=== PATIENT | male | born 1970 | race Caucasian/White ===

== ENCOUNTER 2016-11-14 09:17 | Emergency (ER) | payer OTHER ==
[2016-11-14 09:21] VITALS: TEMP 97.6
[2016-11-14] MEDS ORDERED: ONDANSETRON 4 MG/2 ML VIAL IVP STA (09:27)
[2016-11-14] MEDS ORDERED: KETOROLAC 30 MG/ML 1 ML VIAL IVP STA ×2 (09:27→11:42)
[2016-11-14] MEDS ORDERED: SODIUM CHLORIDE 0.9% 1,000 ML IV STA (09:27)
--- NOTE | 2016-11-14 09:29 | ED ---
General Adult HPI - General Chief complaint: Abdominal Pain Stated complaint: kidney pain, left side Time Seen by Provider: 11/14/16 09:23 Source: patient, RN notes reviewed Mode of arrival: ambulatory Limitations: no limitations - History of Present Illness Initial comments: Patient 46-year-old male who presents emergency room today with a chief complaint of left-sided flank pain. Patient does admit pain located to the left side of his back. States feels like a kidney stone was had several years ago. He does admit the pain started approximately one week. He describes a sharp. Does admit to nausea. Denies any other complaint or symptoms. Patient denies any recent fever, chills, shortness of breath, chest pain, vomiting, numbness or tingling, dysuria or hematuria, constipation or diarrhea, headaches or visual changes, or any other complaints. - Related Data Home Medications Medication Instructions Recorded Confirmed Acetaminophen Tab [Tylenol Tab] 975 mg PO ONCE PRN 11/14/16 11/14/16 Previous Rx's Medication Instructions Recorded Ondansetron Odt [Zofran ODT] 4 mg PO Q8HR PRN #20 tab 11/14/16 Allergies Allergy/AdvReac Type Severity Reaction Status Date / Time No Known Allergies Allergy Verified 11/14/16 09:55 Review of Systems ROS Statement: Those systems with pertinent positive or pertinent negative responses have been documented in the HPI. ROS Other: All systems not noted in ROS Statement are negative. Past Medical History Past Medical History: No Reported History Additional Past Medical History / Comment(s): kidney stone History of Any Multi-Drug Resistant Organisms: None Reported Past Surgical History: No Surgical Hx Reported Past Psychological History: No Psychological Hx Reported Smoking Status: Current every day smoker Past Alcohol Use History: Occasional Past Drug Use History: None Reported General Exam - General Exam Comments Initial Comments: General: The patient is awake and alert, in no distress, and does not appear acutely ill. Eye: Pupils are equal, round and reactive to light, extra-ocular movements are intact. No nystagmus. There is normal conjunctiva bilaterally. No signs of icterus. Ears, nose, mouth and throat: There are moist mucous membranes and no oral lesions. Neck: The neck is supple, there is no tenderness or JVD. Cardiovascular: There is a regular rate and rhythm. No murmur, rub or gallop is appreciated. Respiratory: Lungs are clear to auscultation, respirations are non-labored, breath sounds are equal. No wheezes, stridor, rales, or rhonchi. Gastrointestinal: Soft, non-distended, non-tender abdomen without masses or organomegaly noted. There is no rebound or guarding present. Mild tenderness left CVA. Bowel sounds are unremarkable. Musculoskeletal: Normal ROM, no tenderness. Strength 5/5. Sensation intact. Pulses equal bilaterally 2+. Neurological: A&O x 3. CN II-XII intact, There are no obvious motor or sensory deficits. Coordination appears grossly intact. Speech is normal. Skin: Skin is warm and dry and no rashes or lesions are noted. Psychiatric: Cooperative, appropriate mood & affect, normal judgment. Limitations: no limitations Course Vital Signs 11/14/16 11/14/16 09:19 10:57 Temperature 97.6 F Pulse Rate 82 75 Respiratory 20 16 Rate Blood Pressure 148/78 134/64 O2 Sat by Pulse 100 98 Oximetry Medical Decision Making - Medical Decision Making Patient's CT of the abdomen and pelvis reviewed shows 1. Prominent fluid- filled small bowel loops in the mid and lower abdomen and liquid stool in the ascending colon. Results small bowel loops are mildly dilated up to 3.6 cm, no discrete cringes point seen. Correlate for general ileus or enteritis. 2. No nephrolithiasis or hydronephrosis. 3. Prostatomegaly. Results were discussed with patient. He is advised to follow-up the family doctor over the next 2 days. Patient at this time has had bowel movements. He is passing gas. Patient advised that if any symptoms increase to return here to the emergency room. Is advised to use nausea medication. Advised follow-up the family doctor about his enlarged prostate. She states understanding. - Lab Data Result diagrams: 11/14/16 09:50 11/14/16 10:32 Lab Results 11/14/16 11/14/16 11/14/16 Range/Units 09:50 09:50 10:32 WBC 8.4 (3.8-10.6) k/uL RBC 4.79 (4.30-5.90) m/uL Hgb 16.2 (13.0-17.5) gm/dL Hct 48.1 (39.0-53.0) % MCV 100.4 H (80.0-100.0) fL MCH 33.7 (25.0-35.0) pg MCHC 33.6 (31.0-37.0) g/dL RDW 13.4 (11.5-15.5) % Plt Count 305 (150-450) k/uL Neutrophils % 78 % Lymphocytes % 13 % Monocytes % 6 % Eosinophils % 1 % Basophils % 1 % Neutrophils # 6.6 (1.3-7.7) k/uL Lymphocytes # 1.1 (1.0-4.8) k/uL Monocytes # 0.5 (0-1.0) k/uL Eosinophils # 0.1 (0-0.7) k/uL Basophils # 0.1 (0-0.2) k/uL Sodium 136 L (137-145) mmol/L Potassium 4.6 (3.5-5.1) mmol/L Chloride 104 (98-107) mmol/L Carbon Dioxide 24 (22-30) mmol/L Anion Gap 8 mmol/L BUN 12 (9-20) mg/dL Creatinine 0.66 (0.66-1.25) mg/dL Est GFR (MDRD) Af Amer >60 (>60 ml/min/1.73 sqM) Est GFR (MDRD) Non-Af >60 (>60 ml/min/1.73 sqM) Glucose 92 (74-99) mg/dL Calcium 9.2 (8.4-10.2) mg/dL Total Bilirubin 0.7 (0.2-1.3) mg/dL AST 27 (17-59) U/L ALT 22 (21-72) U/L Alkaline Phosphatase 56 (38-126) U/L Total Protein 7.2 (6.3-8.2) g/dL Albumin 4.4 (3.5-5.0) g/dL Amylase 75 (30-110) U/L Lipase 80 (23-300) U/L Urine Color Yellow Urine Appearance Clear (Clear) Urine pH 6.0 (5.0-8.0) Ur Specific [place] 1.023 (1.001-1.035) Urine Protein Negative (Negative) Urine Glucose (UA) Negative (Negative) Urine Ketones Negative (Negative) Urine Blood Negative (Negative) Urine Nitrite Negative (Negative) Urine Bilirubin Negative (Negative) Urine Urobilinogen <2.0 (<2.0) mg/dL Ur Leukocyte Esterase Negative (Negative) Disposition Clinical Impression: Enteritis, Enlarged prostate Disposition: HOME SELF-CARE Condition: Good Instructions: Colitis (ED) Additional Instructions: Please follow-up the family doctor but enlarged prostate. Please return to emergency room if any symptoms increase or worsen or for any other concerns as discussed. Prescriptions: Ondansetron Odt [Zofran ODT] 4 mg PO Q8HR PRN #20 tab PRN Reason: Nausea Time of Disposition: 11:55
[2016-11-14 10:02] LABS: Basophils # (A) 0.1 k/uL (0-0.2); Basophils % (A) 1 %; CH 33.7; CHCM 33.7; Eosinophils # (A) 0.1 k/uL (0-0.7); Eosinophils % (A) 1 %; HCT 48.1 % (39.0-53.0); HDW 2.07; HGB 16.2 gm/dL (13.0-17.5); Luc # (Auto) 0.13; Luc % (Auto) 2; Lymphocytes # (A) 1.1 k/uL (1.0-4.8); Lymphocytes % (A) 13 %; MCH 33.7 pg (25.0-35.0); MCHC 33.6 g/dL (31.0-37.0); MCV 100.4 fL (80.0-100.0); Monocytes # (A) 0.5 k/uL (0-1.0); Monocytes % (A) 6 %; Neutrophils # (A) 6.6 k/uL (1.3-7.7); Neutrophils % (A) 78 %; RBC 4.79 m/uL (4.30-5.90); RDW 13.4 % (11.5-15.5); WBC 8.4 k/uL (3.8-10.6); WBC (Perox) 8.62
[2016-11-14 10:04] LABS: Appearance,Urine Clear (Clear); Bilirubin,Urine Negative (Negative); Glucose,Urine (UA) Negative (Negative); Ketones,Urine Negative (Negative); Leukocyte Esterase,Urine Negative (Negative); Nitrite,Urine Negative (Negative); Protein,Urine Negative (Negative); Specific Gravity,Urine 1.023 (1.001-1.035); UA Billing (MACRO vs. MICRO) CHEM; Urobilinogen,Urine <2.0 mg/dL (<2.0)
--- NOTE | 2016-11-14 10:30 | XR ---
EXAMINATION TYPE: XR KUB DATE OF EXAM: 11/14/2016 10:00 AM CLINICAL DATA: 46-year-old male with abdominal pain, [facility] COMPARISON: None FINDINGS: Lung bases are clear. Cholecystectomy clips. No evidence for free intraperitoneal air. No dilated small bowel or differential air-fluid levels. Scattered air and stool seen throughout the colon extending distally into the rectum. Small air-fluid levels in the right hemicolon. Calcification far lateral left upper quadrant probable calcified granuloma in the spleen. Nonspecific 8 mm calcification projecting over the right iliac wing could represent calcified granulo ma in the liver. IMPRESSION: 1. Small air-fluid levels within the ascending colon. Findings could represent enteritis or a mild re gional ileus. No evidence for bowel obstruction or free air. 2. Nonspecific 8 mm calcification projecting at the right iliac wing. Possible calcified granuloma. C linical correlation recommended to exclude a urinary tract calculus.
[2016-11-14] MEDS ORDERED: RX INFO: IV CONTRAST WAS GIVEN 1 EACH MISC MISCELLANE PRN (10:49)
[2016-11-14] MEDS ORDERED: HYDROmorphone 1 MG/ML 1 ML SYRINGE IVP STA ×2 (10:50→11:53)
[2016-11-14 10:57] LABS: ALT 22 U/L (21-72); AST 27 U/L (17-59); Alkaline Phosphatase 56 U/L (38-126); Amylase 75 U/L (30-110); Anion Gap 8 mmol/L; Blood Urea Nitrogen 12 mg/dL (9-20); Calcium 9.2 mg/dL (8.4-10.2); Carbon Dioxide 24 mmol/L (22-30); Chloride 104 mmol/L (98-107); Glucose 92 mg/dL (74-99); Non-African American GFR(MDRD) >60 (>60 ml/min/1.73 sqM); Potassium 4.6 mmol/L (3.5-5.1); Sodium 136 mmol/L (137-145); Total Bilirubin 0.7 mg/dL (0.2-1.3); Total Protein 7.2 g/dL (6.3-8.2)
[2016-11-14 10:58] VITALS: BP 134/64; PULSE 75; RESP 16
--- NOTE | 2016-11-14 11:32 | CT ---
EXAMINATION TYPE: CT abdomen pelvis w con DATE OF EXAM: 11/14/2016 11:18 AM COMPARISON: Radiograph same day HISTORY: 46-year-old male with left kidney pain TECHNIQUE: Contiguous axial scanning of the abdomen and pelvis following administration of 100 ml Omn ipaque 300 IV contrast. Delayed images through the kidneys and coronal/sagittal reconstructions perf ormed. CT DLP: 1001 mGycm Automated exposure control for dose reduction was used. FINDINGS: The heart is normal size without pericardial effusion. Postsurgical changes at the GE junction likely Anna Marie fundoplication. Mild dependent atelectasis posterior right lung base. No pleural effusion. There is mild prominence to the biliary system with the bile duct measuring 1 cm. Cholecystectomy cli ps are present. Normal distal tapering is noted. Portal venous system is patent. Adrenal glands, right kidney, spleen with calcifications inferiorly likely calcified granulomas, and pancreas appear within normal limits. A couple subcentimeter hypodensities lateral midpole left kidne y are too small for accurate CT characterization probably represent cysts. No nephrolithiasis or hydr onephrosis. Symmetric uptake and excretion of contrast from both kidneys Posterior intra-abdominal fat limits assessment for abdominal lymph nodes. No obvious lymphadenopathy seen. Numerous prominent fluid-filled small bowel loops throughout the mid and lower abdomen without a disc rete transition point seen. Some of the bowel loops are mildly dilated measuring up to 3.6 cm. Liquid stool within the ascending colon. Normal appendix is seen. Bladder is urine distended. Prostate gland is enlarged measuring 5 cm wide. No abnormal fluid collect ion in the pelvis or pelvic lymphadenopathy seen. Bones: Sclerotic focus in the right iliac bone, likely bone island. This appears to correspond to the 8 mm calcific density seen on radiographs. No osseous destructive process. Limbus L4 vertebra. IMPRESSION: 1. PROMINENT FLUID-FILLED SMALL BOWEL LOOPS IN THE MID AND LOWER ABDOMEN AND LIQUID STOOL IN THE ASCE NDING COLON. WHILE SOME OF THE SMALL BOWEL LOOPS ARE MILDLY DILATED UP TO 3.6 CM, NO DISCRETE TRANSIT ION POINT IS SEEN. CORRELATE FOR GENERALIZED ILEUS OR ENTERITIS. A SHORT INTERVAL FOLLOW-UP CAN BE PE RFORMED IF CLINICAL SYMPTOMS RAISES CONCERN FOR PARTIAL SMALL BOWEL OBSTRUCTION. 2. NO NEPHROLITHIASIS OR HYDRONEPHROSIS. 3. PROSTATOMEGALY (5.0 CM WIDE). PROMINENT UTERINE DISTENTION OF THE BLADDER.
== END 2016-11-14 12:37 | disposition home or self-care (01) ==
LOC: EC 09:17
DX: K52.9 Noninfective gastroenteritis and colitis, unspecified (principal); N40.0 Benign prostatic hyperplasia without lower urinary tract symptoms; F17.200 Nicotine dependence, unspecified, uncomplicated; Z87.442 Personal history of urinary calculi
CPT/HCPCS: 99285; 96374; 96375 ×2; 96376; 96361; 36415; 80053; 82150; 83690; 85025; 81003; 74000; 74177; G0103; J2405; J1885; J1170; Q9967

== ENCOUNTER → 2020-02-20 | Outpatient (CLI) | payer OTHER ==
--- NOTE | 2020-02-21 03:11 | MR ---
EXAMINATION TYPE: MR brain wo/w con DATE OF EXAM: 02/20/2020 COMPARISON: 03/22/2010 CT scan HISTORY: Non Traumatic ICB, hand tremmors, forgetful CONTRAST: Standard multiplanar, multisequence MRI departmental protocol utilizing 6.5 mL intravenous Gadavist g adolinium contrast. FINDINGS: Ventricles of normal size. There is no mass effect nor midline shift. There is no sign of intracrania l hemorrhage. There is mild cerebral atrophy. There is mixed signal involving a 3 x 2 cm area of the medial right frontal lobe consistent with old encephalomalacia also evident on the old CT scan of 02/23. Lesion is predominantly fluid signal. The brainstem is intact. Carpus callosum appears intact . I see no evidence of an acute cortical infarct. Sella turcica appears normal. Cerebellum appears no rmal. The contrast images show no pathologic enhancement. There is normal enhancement of the venous s inuses. There is mixed signal involving the right frontal sinus consistent with previous surgery. 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 No acute intracranial abnormality.
== END | disposition home or self-care (01) ==
LOC: RADMRIMAIN 14:32
PROVIDERS: ATTEND Internal Medicine Geriatric Medicine
DX: G93.89 Other specified disorders of brain (principal)
CPT/HCPCS: 70553; A9585

== ENCOUNTER → 2020-11-13 | Outpatient (CLI) | payer OTHER ==
--- NOTE | 2020-11-13 15:34 | MR ---
EXAMINATION TYPE: MR shoulder RT wo con DATE OF EXAM: 11/13/2020 2:06 PM COMPARISON: NONE HISTORY: Rt shoulder pain TECHNIQUE: Multiplanar multispin echo imaging of the right shoulder was performed. FINDINGS: Rotator cuff : There is heterogeneity of the supraspinatus tendon compatible chronic tendinopathy. Th ere is full thickness partial tear involving the supraspinatus tendon just distal to the critical zon e. Small fluid filled gap measures approximately 7 mm. The remaining constituents of the rotator cuff are intact. Bursa: No bursal effusion or thickening is seen. Musculature: There is no muscular tear, contusion, or atrophy. Acromioclavicular joint : AC joint arthropathy noted mild in degree. Lateral downsloping of the acrom ion with subacromial spurring resulting in impingement. Osseous structures : There are no fractures o r regions of abnormal bone marrow signal intensity. Long biceps tendon : The biceps tendon is normally situated within the bicipital groove. No complete or partial biceps tendon tear is present. Glenohumeral Joint fluid : There is no glenohumeral joint effusion. Cartilage and Bone : No focal hyaline cartilage defects are noted. No Hill-Sachs, reverse Hill-Sachs, or bony Bankart lesions are seen. Labrum : There are no SLAP or soft tissue Bankart lesions. No paralabral cysts are seen. OTHER FINDINGS : none IMPRESSION: 1. There is heterogeneity of the supraspinatus tendon compatible chronic tendinopathy. There is full thickness partial tear involving the supraspinatus tendon just distal to the critical zone. Small flu id filled gap measures approximately 7 mm.
== END | disposition home or self-care (01) ==
LOC: RADMRIMAIN 13:01
PROVIDERS: ATTEND Orthopaedic Surgery
DX: M75.111 Incomplete rotator cuff tear or rupture of right shoulder, not specified as traumatic (principal)

== ENCOUNTER → 2020-12-28 | Outpatient (CLI) | payer OTHER ==
[2020-12-28 13:20] LABS: Potassium 4.3 mmol/L (3.5-5.1)
[2020-12-28 13:21] LABS: Basophils % (A) 0 %; Eosinophils # (A) 0.1 k/uL (0-0.7); Eosinophils % (A) 1 %; HCT 45.9 % (39.0-53.0); HGB 15.3 gm/dL (13.0-17.5); Lymphocytes % (A) 14 %; MCH 32.9 pg (25.0-35.0); MCHC 33.2 g/dL (31.0-37.0); MCV 98.8 fL (80.0-100.0); Mean Platelet Volume 6.8; Monocytes # (A) 0.3 k/uL (0-1.0); Monocytes % (A) 5 %; Neutrophils # (A) 5.6 k/uL (1.3-7.7); Neutrophils % (A) 79 %; Platelet Count 341 k/uL (150-450); RBC 4.64 m/uL (4.30-5.90); RDW 13.3 % (11.5-15.5); WBC 7.1 k/uL (3.8-10.6)
== END | disposition home or self-care (01) ==
LOC: LABPAT 11:56
PROVIDERS: ATTEND Orthopaedic Surgery
DX: Z01.812 Encounter for preprocedural laboratory examination (principal); M75.41 Impingement syndrome of right shoulder; I45.19 Other right bundle-branch block
CPT/HCPCS: 36415; 80051; 85025; 93005

== ENCOUNTER 2021-01-07 07:32 | Day surgery (SDC) | payer OTHER ==
[2021-01-05 13:04] VITALS: BMI 19.3
--- NOTE | 2021-01-06 15:12 | HP ---
HISTORY AND PHYSICAL REASON FOR ADMISSION: Surgery is scheduled for 01/07/2021 HISTORY OF PRESENT ILLNESS: Evens Mejia is a 50-year-old gentleman seen with progressive right shoulder pain. We discussed options for treatment. He elected to proceed with arthroscopy. Consent regarding the procedure was obtained. PAST MEDICAL HISTORY: Noncontributory. SURGICAL HISTORY: Noncontributory. DAILY MEDICATIONS: None. ALLERGIES: None reported. SOCIAL HISTORY: Smokes half pack cigarettes daily. PHYSICAL EVALUATION OF THE RIGHT SHOULDER: Flexion 140, abduction 120, external rotations 30 with weakness and pain. Tenderness along the anterior lateral acromion rotator cuff insertion site. Impingement sign is positive at 90. Drop-arm sign is positive. Distal neurovascular exam is intact. RADIOGRAPHS: Right shoulder radiographs revealed a type 3 acromion evidence for acromioclavicular joint osteoarthritis and cystic changes of the tuberosity. Right shoulder MRI revealed impingement, acromioclavicular joint osteoarthritis and rotator cuff tendon tear. IMPRESSION: 1. Right shoulder impingement with rotator cuff tear. 2. Right shoulder acromioclavicular joint osteoarthritis. 3. Tobacco use. PLAN: Right shoulder arthroscopy, subacromial decompression, arthroscopic rotator cuff repair, Fabiana procedure and debridement. MMODL / IJN: [id number] /
[2021-01-07] MEDS ORDERED: LACTATED RINGERS 1,000 ML IV ONE ×2 (08:10→10:14)
[2021-01-07] MEDS ORDERED: LIDOCAINE 1% (10MG/ML) FOR IV START INTRADERMA ONE (08:11)
[2021-01-07] MEDS ORDERED: ONDANSETRON 4 MG/2 ML VIAL ONE (08:17)
[2021-01-07] MEDS ORDERED: DEXAMETHASONE SOD PHOSPHATE 4 MG/ML 1 ML VIAL IVP ONE (08:23)
[2021-01-07] MEDS ORDERED: ONDANSETRON 4 MG/2 ML VIAL IVP ONE ×3 (08:25→11:03)
[2021-01-07] MEDS ORDERED: LIDOCAINE 1% (10MG/ML) FOR IV START INTRADERMA PRN (08:26)
[2021-01-07] MEDS ORDERED: HYDROmorphone 0.5 MG/0.5 ML SYRINGE IVP PRN (08:26)
[2021-01-07] MEDS ORDERED: MIDAZOLAM 2 MG/2 ML VIAL IV PRN (08:26)
[2021-01-07] MEDS ORDERED: LACTATED RINGERS 1,000 ML IV SCH (08:26)
[2021-01-07] MEDS ORDERED: DEXAMETHASONE SOD PHOSPHATE 4 MG/ML 1 ML VIAL IV ONE (08:26)
[2021-01-07] MEDS ORDERED: MIDAZOLAM 2 MG/2 ML VIAL IVP ONE (08:41)
[2021-01-07] MEDS ORDERED: ePHEDrine SULFATE/0.9% NACL/PF 50 MG/5 ML SYRINGE IV ONE (09:17)
[2021-01-07] MEDS ORDERED: MIDAZOLAM 2 MG/2 ML VIAL ONE (09:17)
[2021-01-07] MEDS ORDERED: DEXAMETHASONE SOD PHOSPHATE 4 MG/ML 1 ML VIAL ONE (09:17)
[2021-01-07] MEDS ORDERED: fentaNYL (PF) 50 MCG/ML 2 ML AMP ONE (09:17)
[2021-01-07] MEDS ORDERED: SUCCINYLCHOLINE CHLORIDE 100 MG/5 ML SYR IV ONE (09:17)
[2021-01-07] MEDS ORDERED: ROPIVACAINE 5 MG/ML 30 ML VIAL ONE (09:17)
[2021-01-07] MEDS ORDERED: LIDOCAINE 1% INJ 10MG/ML (20 ML MDV) ONE (09:17)
[2021-01-07] MEDS ORDERED: PROPOFOL 10 MG/ML 20 ML VIAL IV ONE (09:17)
--- NOTE | 2021-01-07 11:01 | P.OP ---
Date of Procedure: 01/07/21 Preoperative Diagnosis: Right shoulder impingement Postoperative Diagnosis: 1. Right shoulder rotator cuff tear 2. Right shoulder impingement 3. Right shoulder acromioclavicular joint osteoarthritis 4. Right shoulder partial long head biceps tendon tear 5. Right shoulder superficial labral tear Procedure(s) Performed: 1. Right shoulder arthroscopic rotator cuff repair 2. Right shoulder arthroscopic subacromial decompression 3. Right shoulder arthroscopic Fabiana procedure 4. Right shoulder arthroscopic biceps tenotomy 5. Right shoulder arthroscopic debridement labral tear Implants: 4Arthrex 4.75 swivel lock anchors Anesthesia: GETA, regional (Interscalene block) Surgeon: Collin Barnes Cracking Still Operator #1: Yoni Subramanian Estimated Blood Loss (ml): 7 Pathology: none sent Condition: stable Disposition: PACU Indications for Procedure: 50-year-old patient seen with progressive right shoulder pain. After treatment options were discussed, he elected to proceed with arthroscopy. Operative Findings: See description of procedure Description of Procedure: Patient underwent an interscalene block by department of anesthesia. The patient was then taken to the operative suite. The patient underwent a general anesthetic by the department of anesthesia. The patient was placed into a lateral position and secured. There was appropriate padding of the bony prominence. Right shoulder was then prepped and draped in normal sterile orthopedic fashion. We placed the extremity in 10 pounds of longitudinal traction. A posterior incision was now made for a posterior working portal site. The trocar and cannula were inserted into the glenohumeral joint. Arthroscopy was initiated. Spinal needle was now inserted anteriorly, to ascertain the anterior working portal site. An incision was now made in that area, a trocar was inserted followed by a probe. There was some superficial tearing of the anterior labrum. There was no significant chondromalacia present. There was some partial tearing and hyperemia long head biceps tendon. I performed a arthroscopic biceps tenotomy. I debrided that superficial labral tear getting down to stable labral tissue. The residual labrum was now probed and found to be stable. Instruments now removed from glenohumeral joint. Utilizing the posterior working portal site, the trocar and cannula were inserted into the subacromial space. Arthroscopy initiated. I made an incision 2 fingerbreadths lateral to the acromion. I introduced my trocar followed by my ArthroCare ablator. I now began ablating thick subacromial bursal tissue, which exposed the undersurface of the anterior acromion. There was diminished subacromial space. There was a very prominent anterior acromion. A motorized bur was introduced and a subacromial decompression was performed. I also excised some osteophytes off the inferior aspect of the distal clavicle. The AC joint was visualized and noted to be fairly arthritic. The motorized bur was introduced in the anterior portal site and a Fabiana procedure was performed without difficulty, decompressing the AC joint nicely. I turned my attention to the rotator cuff. There was a 2.5 cm rotator cuff tear. I debrided the margins getting down to stable tendon tissue. I introduced my motorized bur and abraded the footprint area, getting some petechial bleeding. I now made an accessory p ortal site off the lateral aspect of the acromion. I punched 2 holes medial for medial row fixation with the assistance of Shiva CUNHA carefully tapping the punch with a mallet as I held the punch and the camera. I now introduced both anchors into the pre-punched holes and Shiva CUNHA tapped them with the mallet as I held anchors and the camera. Shiva CUNHA now screwed the anchors in place a while I held the anchor guide and camera. All 8 limbs of suture were now passed through good bites of rotator cuff tendon. I now punched 2 holes for lateral row fixation again I held the punch and camera while Shiva CUNHA used a mallet to tap in the punch. We now passed sutures through both anchors and individually I introduced the anchors into the pre-punch holes I held the anchor guide in position with one hand holding the camera with the other hand while Shiva CUNHA tensioned the sutures and screwed in the anchors one at a time. All residual suture limbs were now clipped. We had good compression of the tendon along the entire footprint. Instruments now removed from the portal sites. All portal sites were approximated with nylon suture. Sterile dressings were applied followed by a shoulder immobilizer. Yoni CUNHA assisted in this complex case. The patient was awakened, transferred to a bed, and taken to recovery in stable condition.
[2021-01-07 11:02] VITALS: TEMP 97.2
[2021-01-07 11:45] VITALS: BP 144/83; PULSE 81; RESP 20
--- NOTE | 2021-01-07 19:52 | P.ANPRN ---
Procedure Note - Anesthesia - Nerve Block Performed Right Interscalene Single Time Out Performed: Yes Date of Procedure: 01/07/21 Procedure Start Time: 08:40 Procedure Stop Time: 08:45 Location of Patient: PreOp Indication: Acute Post-Operative Pain, Requested by Surgeon Sedation Type: Sedate with meaningful contact maintained Preparation: Sterile Prep Position: Supine Needle Types: Pajunk Needle Gauge: 21 Ultrasound used to visualize needle placement: Yes Ultrasound used to observe medication spread: Yes Blood Aspirated: No Pain Paresthesia on Injection Noted: No Resistance on Injection: Normal Image Stored and Saved: Yes Events: Uneventful and Well Tolerated (ropi .5% 20cc plus dexamethasone 4mg)
== END 2021-01-07 12:39 | disposition home or self-care (01) ==
LOC: OR 07:32
PROVIDERS: ATTEND Orthopaedic Surgery
DX: M75.101 Unspecified rotator cuff tear or rupture of right shoulder, not specified as traumatic (principal); M25.811 Other specified joint disorders, right shoulder; M19.011 Primary osteoarthritis, right shoulder; S46.111A Strain of muscle, fascia and tendon of long head of biceps, right arm, initial encounter; S43.431A Superior glenoid labrum lesion of right shoulder, initial encounter; X58.XXXA Exposure to other specified factors, initial encounter; M25.711 Osteophyte, right shoulder; F17.210 Nicotine dependence, cigarettes, uncomplicated; Z79.899 Other long term (current) drug therapy; Z90.49 Acquired absence of other specified parts of digestive tract; Z98.890 Other specified postprocedural states
CPT/HCPCS: 64415; 76942; 29826; 29827; 29824; C1713; C1894; J2250; J1100; J2405; J0690; J2001; J3010; J2795; J0330; J2704

== ENCOUNTER → 2023-08-18 | Outpatient (CLI) | payer OTHER ==
--- NOTE | 2023-08-20 18:48 | MR ---
EXAMINATION TYPE: MR cervical spine wo con DATE OF EXAM: 08/18/2023 COMPARISON: HISTORY: Neck pain into right arm/fingers CONTRAST: Performed utilizing mL intravenous gadolinium contrast. TECHNIQUE: Multiplanar multiecho imaging on a 3.0 Carmenza magnet is performed through the cervical spin e. FINDINGS: The craniovertebral junction is normal. Vertebral body alignment is normal. C7-T1: No focal disc herniation or significant disc bulge is evident. No spinal canal stenosis. Mil d right foraminal stenosis is present. C6-7: Disc space narrowing is present. Minimal residual disc has anterior thecal sac flattening. Mode rate right foraminal narrowing is present. No cord contact or spinal canal stenosis is present.. C5-6: No focal disc herniation or significant disc bulge is evident. No spinal canal stenosis or susie ral foraminal stenosis is present. C4-5: Minimal disc bulge is anterior thecal sac. No AP spinal canal stenosis is present. Foramina are patent.. C3-4: No focal disc herniation or significant disc bulge is evident. No spinal canal stenosis or susie ral foraminal stenosis is present. C2-3: No focal disc herniation or significant disc bulge is evident. No spinal canal stenosis or susie ral foraminal stenosis is present. IMPRESSION: 1. Minimal degenerative disc changes C4-5 and C6-7. 2. Right foraminal narrowing at C6-7
== END | disposition home or self-care (01) ==
LOC: RADMRIMAIN 18:00
PROVIDERS: ATTEND Orthopaedic Surgery
DX: M47.812 Spondylosis without myelopathy or radiculopathy, cervical region (principal); M99.71 Connective tissue and disc stenosis of intervertebral foramina of cervical region
CPT/HCPCS: 72141

== ENCOUNTER 2024-01-08 06:18 | Inpatient (IN) | payer BC, OTHER ==
[2024-01-08] MEDS: SCOPOLAMINE 1 MG/72 HR PATCH TRANSDERM ONE (06:55)
[2024-01-08] MEDS: ONDANSETRON 4 MG/2 ML VIAL IVP ONE (06:55)
[2024-01-08] MEDS: LACTATED RINGERS 1,000 ML IV SCH (06:57)
[2024-01-08 07:01] LABS: Glucose,Whole Blood 87 mg/dL (70-110)
[2024-01-08] MEDS: MIDAZOLAM 2 MG/2 ML VIAL IV PRN (07:01)
[2024-01-08] MEDS: fentaNYL (PF) 50 MCG/ML 2 ML AMP IVP PRN (07:12)
[2024-01-08] MEDS ORDERED: MIDAZOLAM 2 MG/2 ML VIAL ONE (07:23)
[2024-01-08] MEDS ORDERED: ePHEDrine 50 MG/ML 1 ML VIAL ONE (07:23)
[2024-01-08] MEDS ORDERED: ROCURONIUM 10 MG/ML (5 ML VIAL) IV ONE (07:23)
[2024-01-08] MEDS ORDERED: HYDROmorphone (PF) 1 MG/ML ONE (07:23)
[2024-01-08] MEDS ORDERED: LIDOCAINE 1% INJ 10MG/ML (20 ML MDV) ONE (07:23)
[2024-01-08] MEDS ORDERED: fentaNYL (PF) 50 MCG/ML 2 ML AMP ONE (07:23)
[2024-01-08] MEDS ORDERED: SUCCINYLCHOLINE CHLORIDE 200 MG/10 ML VIAL IV ONE (07:23)
[2024-01-08] MEDS ORDERED: NEOSTIGMINE 1 MG/ML 10 ML VIAL ONE (07:23)
[2024-01-08] MEDS ORDERED: PHENYLEPHRINE-0.9% NACL SYG 1,000 MCG/10 ML SYRINGE ONE (07:23)
[2024-01-08] MEDS ORDERED: GLYCOPYRROLATE 0.2 MG/ML 2 ML VIAL ONE (07:23)
[2024-01-08] MEDS ORDERED: KETAMINE HCL IN 0.9 % NACL 50 MG/5 ML SYRINGE ONE (07:23)
[2024-01-08] MEDS ORDERED: PROPOFOL 10 MG/ML 20 ML VIAL IV ONE (07:23)
[2024-01-08] MEDS ORDERED: DEXAMETHASONE SOD PHOSPHATE 10 MG/ML 1 ML VIAL ONE (07:23)
[2024-01-08] MEDS: IV FLUID CONTINUATION 1,000 ML IV ONE ×2 (07:29)
--- NOTE | 2024-01-08 07:30 | P.ANPRN ---
Procedure Note - Anesthesia - Invasive Line Right Arterial Line Time Out Performed: Yes Date of Procedure: 01/08/24 Time of Procedure: 07:12 Location of Patient: PreOp Preparation: Sterile Prep Arterial Line Location: Radial Ultrasound Used: Yes Purpose - Visualization and Identification of Vasculature: Yes Image Stored and Saved: Yes Narrative: Invasive line placement per sterile protocol utilized. AttemptX1
[2024-01-08] MEDS: GELATIN SPONGE,ABSORB (LARGE) 1 EACH SPONGE MISCELLANE ONE (08:02)
[2024-01-08] MEDS: BUPIVACAINE (PF) 0.5% 30 ML VIAL SQ ONE ×2 (08:02)
[2024-01-08] MEDS: LIDOCAINE 1%-EPI 1:100,000 20 ML VIAL SQ ONE ×2 (08:02)
[2024-01-08] MEDS: THROMBIN (BOVINE) 5,000 UNIT VIAL TOPICAL ONE (08:02)
[2024-01-08] MEDS: ceFAZolin 1,000 MG in SODIUM CHLORIDE 0.9% IRRIGATIO 1,000 ML IRRIGATION PRN (08:23)
--- NOTE | 2024-01-08 09:36 | XR ---
EXAMINATION TYPE: XR cervical spine 1V DATE OF EXAM: 01/08/2024 COMPARISON: None HISTORY: Intraoperative TECHNIQUE: Crosstable lateral cervical spine FINDINGS: Metallic device directed to the C6-7 disc level. There is narrowed C5-6 and C6-7 disc space s IMPRESSION: 1. Metallic device directed towards the C6-7 disc space
[2024-01-08] MEDS ORDERED: HYDROmorphone 1 MG/ML 1 ML SYRINGE IVP PRN (10:15)
[2024-01-08] MEDS ORDERED: BENZOCAINE/MENTHOL LOZENG 1 EACH LOZENGE MUCOUS MEM PRN (10:15)
[2024-01-08] MEDS ORDERED: ONDANSETRON 4 MG/2 ML VIAL IVP PRN (10:21)
[2024-01-08] MEDS ORDERED: ACETAMINOPHEN TAB 500 MG TAB PO PRN (10:24)
--- NOTE | 2024-01-08 10:28 | P.OP ---
Date of Procedure: 01/08/24 Preoperative Diagnosis: Spinal stenosis C4-5 C5-6 C6-7 Upper extreme radiculopathy Degenerative disc disease C4-5 C5-6 C6-7 neck pain, Postoperative Diagnosis: Same Anesthesia: GETA Pathology: none sent Condition: stable Disposition: PACU Description of Procedure: BRIEF OPERATIVE NOTE Preoperative Diagnosis:Spinal stenosis C4-5 C5-6 C6-7 Upper extreme radiculopathy Degenerative disc disease C4-5 C5-6 C6-7 neck pain, Postoperative Diagnosis:Spinal stenosis C4-5 C5-6 C6-7 Upper extreme radiculopathy Degenerative disc disease C4-5 C5-6 C6-7 neck pain, Procedure: Anterior cervical decompression with discectomy and fusion C4-5 C5-6 C6-7 Placement of interbody graft C4-5 C5-6 C6-7 Application of anterior cervical plate C4-5-6 7 Surgeon: Dr. Ross Felt Hanger: Fernando CUNHA who is present throughout the entire the case persistence during positioning, dissection, exposure, visualization, and all crucial elements of the case as well as closure. Anesthesia: General anesthesia per Dr. Koch Estimated blood loss: Approximate 100 cc Complications: None apparent Components implanted: [place] K2 M [place] anterior cervical plate system with screws and Vikos interbody allograft bone graft with 1 cc of DBX bone putty to supplement the bone graft Disposition: To recovery room in good stable condition. OPERATIVE INDICATIONS The patient has had long-standing issues in their neck and upper extremities. Patient has been having worsening symptoms at his neck and the bilateral upper extremities over the past few months. He was found to have severe disc degeneration with spinal stenosis which correlated well with his neck and upper extremity symptoms. The patient has been through conservative treatment. He is not having any prolonged benefit despite aggressive conservative care. We discussed various treatment options including surgery, and the patient wishes to proceed with surgery We discussed the risk, patient's alternatives and benefits of surgery including but not limited to, risk of bleeding risk of infection, risk of need for further surgery, risk of decreased, loss of motion, muscle function, malunion nonunion, hardware failure, nerve damage, paralysis, heart attack, and . OPERATIVE SUMMARY After discussing all the risks, patient alternatives and benefits at length, the patient elected to proceed with surgical intervention, signed informed consent, and presented for their procedure. The patient was seen and examined in the preoperative holding area and the surgical site was marked. The patient was given antibiotics and brought to the operating room. The patient was positioned on the operating room table in a supine position being careful to pad any bony prominences and pressure points. The patient was sedated and intubated by anesthesia in standard fashion. Once the airway and C- spine were stabilized the patient's arms were padded and tucked at her side, with her shoulders gently taped. The head was placed in a donut pad with the neck in good neutral alignment and position. We were careful to maintain the patient's cervical spine and good neutral alignment and position throughout. The patient was prepped and draped in a normal standard fashion. An appropriate timeout and keystone protocol performed. We were able to proceed with the surgery. The local wound area was infiltrated with local anesthetic. An incision was made transversely approximately 2-1/2 cm over the appropriate levels at C6. Dissection was taken down subcutaneously to the level of the platysma which was split in line with its fibers. Dissection was taken with a carotid approach, with the trachea and esophagus medial and the carotid sheath laterally. We dissected down to the anterior surface of the vertebral bodies from C4-C7. Intraoperative x-ray was taken which showed a marker at the appropriate level at C6-7. With the appropriate level positively confirmed, we were able to proceed with discectomy at the appropriate levels. All of the operative levels were exposed appropriately. The patient had all their twitches back, and there was no evidence of recurrent laryngeal issue. The wound was copiously irrigated and suctioned dry as had been done periodically throughout the case. At the appropriate level/levels, I established an annulotomy with an 11 blade scalpel. Starting at C6-7 and then moving to C5-6 and then at C4-5, A discectomy was performed with a combination of pituitary rongeurs, curettes, a high-speed bur, and Kerrison rongeurs. The posterior longitudinal ligament was taken down as were any posterior osteophytes. This gave good central and bilateral foraminal decompression. There were large posterior osteophytes at each of the levels which were taken down and significant stenosis with hypertrophy at the posterior longitudinal ligament which was taken down to get further decompression. There is no evidence of any dural tear or leak. The endplates were prepared with a high-speed bur. With the endplates in good parallel position, I was able to size for the appropriate size interbody graft. The wound was irrigated and suctioned dry the graft was prepared and malleted into position. It had good alignment and position with the anterior surface flush with the anterior surface of the vertebral bodies. This was done similarly the appropriate levels. With the grafts intact, I was able to measure and contour and appropriate sized plate. The plate was positioned at the midline over the appropriate levels at C4-5-6 and 7. Screw holes were established with a hand drill and drill guide. Screws were placed in good alignment and position with excellent bony purchase. They were seated under the locking device. The construct was checked and found to be stable. Intraoperative x-ray was taken which showed good alignment and position of the implants at the appropriate levels. There was no evidence of any dural tear or leak. Good hemostasis was maintained. The wound was copiously irrigated and suctioned dry as had been done periodically throughout the case. The platysma was closed with absorbable suture. The subcutaneous tissue was closed. The subcuticular tissue was closed with absorbable suture. The wound was cleaned and dried and dressed appropriately. A soft cervical collar was placed appropriately. The patient was woken up by anesthesia, extubated, transferred back gently to their hospital bed and brought to the recovery room in good stable condition. The patient will be admitted to the hospital for appropriate postoperative care, medical management and monitoring. We will continue to follow them closely about the postoperative course.
[2024-01-08] MEDS: droPERidol 5 MG/2 ML VIAL IVP ONE (11:11)
[2024-01-08] MEDS: HYDROmorphone 0.5 MG/0.5 ML SYRINGE IVP PRN ×2 (11:35→15:11)
--- NOTE | 2024-01-08 12:43 | XR ---
EXAMINATION TYPE: XR cervical spine 1V DATE OF EXAM: 01/08/2024 COMPARISON: 01/08/2024 earlier exam HISTORY: Cervical fusion TECHNIQUE: Lateral cervical spine FINDINGS: There is an anterior cervical fusion C4-C7. Disc spacers are placed through these levels. R emaining disc heights are preserved. Vertebral body heights are preserved. IMPRESSION: 1. Status post anterior cervical fusion C4-C7
[2024-01-08] MEDS: DEXAMETHASONE SOD PHOSPHATE 4 MG/ML 1 ML VIAL IV ONE (14:20)
[2024-01-08] MEDS: SODIUM CHLORIDE 0.9% 1,000 ML IV SCH (14:20)
[2024-01-08] MEDS: HYDROcodone/APAP 5-325MG 1 EACH TAB PO PRN (17:44)
[2024-01-08] MEDS: CYCLOBENZAPRINE 10 MG TAB PO PRN (17:45)
[2024-01-08] MEDS: ALPRAZolam 0.5 MG TAB PO PRN (20:55)
[2024-01-09 02:47] VITALS: TEMP 98.1
[2024-01-09 07:25] VITALS: BP 122/77; PULSE 89; RESP 17
--- NOTE | 2024-01-09 07:33 | P.CONS ---
History of Present Illness - Reason for Consult Consult date: 01/09/24 Medical management Requesting physician: Hattie Ross - Chief Complaint Severe spinal stenosis with anterior cervical decompression with Disectomy - History of Present Illness HISTORY OF PRESENT ILLNESS: 53-year-old with active medical history of severe spinal stenosis along with cervical myopathy, history of hypertension, hyperglycemia, BPH, tremor, PTSD who had suffered from severe cervical spine pain along with right shoulder pain discomfort and weakness continue to have numbness and tingling sensation in the hand in the upper extremity he had some in the left side radiating down to the left upper extremity but continued to have some weakness with his right upper extremity patient continues to be quite symptomatic despite using hydrocodone on more regular basis. Apparently back in September 08, 2023 had epidural injection of the cervical spine area which provided about 40% relief only symptom returned back very fast. Being quite symptomatic and continues to have severe pain and discomfort and more lack of function and that has been having trouble doing his daily activity decide to go for surgery which Dr. Ross has done on 01/08/2024 cervical spine for5 and cervical spine 5-6 and 6-7 anterior cervical spine decompression with direct ectomy and fusion. Patient was admitted to the floor afterward is stable hemodynamically continue pain control management. Mcknight catheter came out yesterday and patient is able to void on his own. Also is walking to the bathroom safe on his own with no balance issue at this point. Pain seems to be under better control on oral medication. REVIEW OF SYSTEMS: CONSTITUTIONAL: Well-developed no acute respiratory distress. EYES: No icterus sclerae, no conjunctivitis. EARS, NOSE, MOUTH, THROAT, and FACE: No sore throat, lymphadenopathy, carotid bruits or deformity. Still have cervical spine collar. RESPIRATORY: No SOB cough or wheezes. CARDIOVASCULAR: No CP, Palpitation, PND, Orthopnea, or angina. GASTROINTESTINAL: No Abd pain, Nausea or vomiting, no Diarrhea or constipation, No GI Bleed, no distention or masses. GENITOURINARY: Negative for Hematuria or UTI, no kidney stones. INTEGUMENT/BREAST: Negative for any muscular injury with mild osteoarthritis.. HEMATOLOGIC/LYMPHATIC: Negative for bleed or purpura. MUSCULOSKELTAL: Negative for Myalgia or arthralgia. NEURLOGICAL: No LOC, Sz or syncope, blurred vision dizziness or abnormality.. BEHAVIORAL/PSYCH: Negative. ENDOCRINE: Negative. PHYSICAL EXAMINATION: General Appearance: Alert, cooperative, no distress, appears stated age. Neck HEENT: Supple, no lymphadenopathy, no thyroid enlargement, no carotid bruits. Incision looks fine still clearly cervical spine collar at this point. Lungs: Clear to auscultation without crackles or wheezes no rhonchi, no deformity. Chest Wall: Chest wall normal expansion with deep inspiration no tenderness and no deformity was found on exam, no costochondral pain or discomfort. Heart: Regular rate and rhythm, S1, S2 normal, no murmur, rub or gallop. Back: Symmetric, no curvature, ROM normal, no CVA tenderness. Abdomen: Soft, non-tender, bowel sounds active all four quadrants, no masses, no organomegaly. Extremities: Extremities normal, atraumatic, no cyanosis or edema. Still have slight weakness in the upper extremity bilaterally. Pulses: 2+ and symmetric. Skin: Skin color, texture, tugor normal, no rashes or lesions. Neurologic: Alert oriented x3 cranial nerves II through XII intact, slight weakness in the upper extremity worse on the right side than the left side. ASSESSMENT AND PLAN: _Severe cervical spine stenosis of C4-5, C5-6 and C6/7 post anterior cervical spine decompression with dicyclomine infusion: Continue pain management neuropathy management as well at this point. So far is ambulating on his own with no need for help and pain seems under good control. _History of hypertension: Continue to watch blood pressure carefully he is not on any medication currently if needed will use smaller dose of calcium channel yesika. _BPH: Had slight urinary retention after his catheter out but is able to void on his own today with no symptoms if continue to have any problem will add Flomax on as-needed basis. _History of PTSD: He is not on any SSRI or SNRI at this point. _Chronic history of nicotine dependency: Will benefit from doing nicotine patch 14 mg daily. _History of tremor: Mostly essential tremor not on any medication. _Hyperglycemia: No need for any medication at this point unless needed can use smaller dose of hospital bed with product. _Chronic pain syndrome: Following surgery still on fentanyl IV along with Dilaudid and hydrocodone. Undergoing home will be probably on Robaxin and hydrocodone. _GI prophylaxis: Use Pepcid 20 mg daily. _DVT prophylaxis: Early mobilization and knee-high REJI hose. CODE STATUS: Full code. Dr. Ross thank you much for the consult Patient is very stable after surgery will be probably discharged home today will be seeing him back in the office next week, if I can be any further help to please let me know. Past Medical History Past Medical History: Osteoarthritis (OA) Additional Past Medical History / Comment(s): kidney stone History of Any Multi-Drug Resistant Organisms: None Reported Past Surgical History: Cholecystectomy, Hernia Repair, Orthopedic Surgery Additional Past Surgical History / Comment(s): BRAIN SURGERY FOR A BLOOD CLOT , HIATAL HERNIA, RIGHT ROTATOR CUFF REPAIR Past Anesthesia/Blood Transfusion Reactions: Postoperative Nausea & Vomiting (PONV) Past Psychological History: No Psychological Hx Reported Smoking Status: Current every day smoker Past Alcohol Use History: Daily Additional Past Alcohol Use History / Comment(s): STARTED SMOKING AT AGE 14 SMOKES 1/2PPD. DRINKS 2-3 BEERS A DAY Past Drug Use History: None Reported - Past Family History Mother Family Medical History: No Reported History Medications and Allergies Home Medications Medication Instructions Recorded Confirmed Type Acetaminophen [Tylenol Extra 1,000 mg PO BID PRN 01/05/24 01/05/24 History Strength] dexAMETHasone [Decadron] 6 mg PO DAILY 01/05/24 01/05/24 History HYDROcodone/APAP 5-325MG [[place] 1 tab PO Q4HR PRN #42 tab 01/08/24 Rx 5-325] Allergies Allergy/AdvReac Type Severity Reaction Status Date / Time No Known Allergies Allergy Verified 01/08/24 06:50 Physical Exam Vitals: Vital Signs Temp Pulse Resp BP BP Pulse Ox 01/09/24 01:47 98.1 F 74 18 99/55 98 01/08/24 20:49 98.0 F 90 18 153/79 98 01/08/24 14:18 97.1 F L 102 H 17 127/76 97 01/08/24 13:15 74 16 120/60 99 01/08/24 12:39 103 H 16 129/66 100 01/08/24 12:09 102 H 16 135/71 100 01/08/24 11:39 85 12 131/63 98 01/08/24 11:09 103 H 16 133/66 97 01/08/24 10:39 84 16 121/61 94 L 01/08/24 10:24 98 16 139/67 99 01/08/24 10:09 98.5 F 99 16 145/62 100 01/08/24 07:25 135/67 01/08/24 06:32 98.1 F 92 20 168/83 100 Intake and Output 01/08/24 01/08/24 01/09/24 14:59 22:59 06:59 Intake Total 2100 Output Total 200 700 Balance 1901 -700 Intake: IV 2100 Output: Urine 100 700 Estimated Blood Loss 100 Other: # Voids 1 Weight 59.7 kg
[2024-01-09] MEDS: SENNOSIDES-DOCUSATE SODIUM 1 EACH TAB PO SCH (08:00)
[2024-01-09] MEDS: FAMOTIDINE 20 MG TAB PO SCH (08:00)
[2024-01-09] MEDS: NICOTINE 14MG/24HR PATCH TRANSDERM SCH (08:09)
--- NOTE | 2024-01-09 08:37 | P.DS ---
Providers Date of admission: 01/08/24 06:18 Expected date of discharge: 01/09/24 Attending physician: Hattie Ross Primary care physician: David Cadena - Discharge Diagnosis(es) (1) Degenerative cervical disc Current Visit: Yes Status: Acute (2) Cervicalgia Current Visit: Yes Status: Acute (3) Status post cervical spinal fusion Current Visit: Yes Status: Acute (4) Cervical stenosis of spinal canal Current Visit: Yes Status: Acute (5) Radiculopathy affecting upper extremity Current Visit: Yes Status: Acute Hospital Course: This is a pleasant 53-year-old male who presented with C4-5, C5-6, and C6-7 spinal stenosis, upper extremity radiculopathy, cervical degenerative disc disease, and cervicalgia who failed outpatient conservative therapy. He was admitted for a C4-5, C5-6, and C6-7 anterior cervical decompression and fusion. Postoperatively he feels his pain has been well-controlled. He is not currently complain of any significant cervical pain or upper extremity pain. He is very happy with his progress. He is eating and voiding out difficulty. He is ready for discharge. The patient tolerated the procedure well and did well postoperatively. Condition on day of discharge stable. Patient will be discharged home. Patient was cleared preoperatively for surgery by . Patient currently denies any nausea, vomiting, fever, or chills. Patient is eating and voiding freely without difficulty. Patient may shower Optifoam dressing intact. Patient may remove Optifoam dressing in 3 days and shower without a dressing at that time. Patient should refrain from driving until at least after their first follow-up appointment in the office. Patient should avoid excessive neck flexion, extension, rotation, and lateral sidebending; no overhead lifting; no lifting greater than 10 pounds. MAPS has been reviewed. An "Opiod Start Talking" Form has been signed and placed in the patient's chart. A prescription has been written for hydrocodone 5 mg / 325 mg, 1 tab, every 4 hours as needed for acute pain, dispense #42. Patient also given a prescription for Senokot-S, 1 tab, twice daily, as needed for constipation, dispense #60. Prescriptions were sent to the patient's regular pharmacy. Physical Exam on day of discharge: Patient is awake, alert, and oriented 3 Vital signs stable Good chest excursion with deep inspiration and expiration Abdomen soft nontender No signs or symptoms of DVT; no calf pain Adequate range of motion of the cervical spine with adequate flexion, extension, and bilateral rotation Cutter Hot Knife strength, thumb strength, interosseous strength, biceps strength, triceps strength, and shoulder strength positive sustained bilaterally Soft cervical collar intact Incision is clean, dry, and intact; no erythema, purulence, or signs of infection Optifoam dressing intact Procedures: C4-5, C5-6, and C6-7 anterior cervical decompression and fusion Patient Condition at Discharge: Stable Plan - Discharge Summary Discharge Rx Participant: Yes New Discharge Prescriptions: New HYDROcodone/APAP 5-325MG [[place] 5-325] 1 tab PO Q4HR PRN #42 tab PRN Reason: Pain Sennosides-Docusate Sodium [Senokot-S] 1 tab PO BID PRN #60 tablet PRN Reason: Constipation No Action dexAMETHasone [Decadron] 6 mg PO DAILY Acetaminophen [Tylenol Extra Strength] 1,000 mg PO BID PRN PRN Reason: Pain Discharge Medication List Acetaminophen [Tylenol Extra Strength] 1,000 mg PO BID PRN 01/05/24 [History] dexAMETHasone [Decadron] 6 mg PO DAILY 01/05/24 [History] HYDROcodone/APAP 5-325MG [[place] 5-325] 1 tab PO Q4HR PRN #42 tab 01/08/24 [Rx] Sennosides-Docusate Sodium [Senokot-S] 1 tab PO BID PRN #60 tablet 01/09/24 [Rx] Follow up Appointment(s)/Referral(s): Hattie Ross DO [Doctor of Osteopathic Medicine] - 2 Weeks (Patient may follow-up with Fernando Duran PA-C or Dr. Yogesh Ross at [facility] in 2-3 weeks following discharge. ) Activity/Diet/Wound Care/Special Instructions: Keep site clean. May shower with waterproof Tegaderm intact. Do not soak in a tub. After 72 hours postoperatively, patient May remove dressing and then may shower with area uncovered. Leave glue intact and allow it to fray off on its own. May ambulate as tolerated. Avoid heavy or rigorous activity. No repetitive bending twisting or lifting. Soft cervical collar for comfort and support as needed. No overhead work. Discharge Disposition: HOME SELF-CARE
== END 2024-01-09 09:44 | disposition home or self-care (01) | DRG 473 ==
LOC: 2ORMAIN 06:18 → EDSTATUS 07:30 → 4SSUR 13:37
PROVIDERS: ADMIT Orthopaedic Surgery Orthopaedic Surgery of the Spine; ATTEND Orthopaedic Surgery Orthopaedic Surgery of the Spine
PROC: 0RG20K0 Fusion of 2 or more Cervical Vertebral Joints with Nonautologous Tissue Substitute, Anterior Approach, Anterior Column, Open Approach (ICD-10-PCS; principal; 2024-01-08 07:30)
PROC: 01N10ZZ Release Cervical Nerve, Open Approach (ICD-10-PCS; principal; 2024-01-08 07:30)
PROC: 0RB30ZZ Excision of Cervical Vertebral Disc, Open Approach (ICD-10-PCS; principal; 2024-01-08 07:30)
PROC: 4A11X4G Monitoring of Peripheral Nervous Electrical Activity, Intraoperative, External Approach (ICD-10-PCS; principal; 2024-01-08 07:30)
DX: M48.02 Spinal stenosis, cervical region (principal); M50.121 Cervical disc disorder at C4-C5 level with radiculopathy; I10 Essential (primary) hypertension; G25.0 Essential tremor; G62.9 Polyneuropathy, unspecified; N40.1 Benign prostatic hyperplasia with lower urinary tract symptoms; R33.8 Other retention of urine; K21.9 Gastro-esophageal reflux disease without esophagitis; G89.4 Chronic pain syndrome; F43.10 Post-traumatic stress disorder, unspecified; M19.90 Unspecified osteoarthritis, unspecified site; F17.210 Nicotine dependence, cigarettes, uncomplicated; Z79.52 Long term (current) use of systemic steroids; Z79.891 Long term (current) use of opiate analgesic
CPT/HCPCS: 72020

== ENCOUNTER → 2024-04-18 | Outpatient (CLI) | payer BC ==
--- NOTE | 2024-04-18 10:35 | MR ---
EXAMINATION TYPE: MR brain wo/w con DATE OF EXAM: 04/18/2024 COMPARISON: 02/19/2010 at 19 HISTORY: tremors in hands, skull fracture, brain bleed follow up TECHNIQUE: Multiplanar, multisequence images of the brain and brainstem is performed without and with IV contras t, utilizing 6 mL intravenous Gadavist . FINDINGS: Diffusion weighted images demonstrate no evidence of a recent infarct or other diffusion ab normality. There is no extra-axial fluid collection or significant white matter signal abnormality. The ventricular system and cisternal spaces are normal in size and appearance. The brain volume is age appropriate. Midline structures demonstrate normal morphology. The craniocervical junction appears within normal limits. Post contrast images demonstrate no abnormal enhancement. The dural venous sinuses appear pa tent. The visualized sinuses are clear and the globes are intact. Nasal septal deviation. Area of encephalomalacia and the right frontal lobe. There is postsurgical ch veronica involving the anterior margin of the calvarium. Prominent cisterna magna variant noted. Stable a ppearing subcentimeter nodule involving the left parotid gland unchanged from 2019. IMPRESSION: 1. Postoperative changes with encephalomalacia involving the right frontal lobe. Tiny similar to prio r exam.. [facility], , 04/18/2024 10:32 AM
== END | disposition home or self-care (01) ==
LOC: RADMRIMAIN 09:00
PROVIDERS: ATTEND Internal Medicine Geriatric Medicine
DX: R25.1 Tremor, unspecified
CPT/HCPCS: 70553

== ENCOUNTER 2025-02-15 23:24 | Inpatient (IN) | payer BC, OTHER ==
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
[2025-02-16] MEDS: HYDROcodone/APAP 10-325MG 1 EACH TAB PO ONE (00:38)
[2025-02-16] MEDS: KETOROLAC 15 MG/ML 1 ML VIAL IM STA (00:40)
[2025-02-16] MEDS: LIDOCAINE 1%-EPI 1:100,000 20 ML VIAL SQ STA (02:32)
[2025-02-16] MEDS: LIDOCAINE 1%/EPI 1:200,000 MPF 10 ML VIAL SQ STA (04:13)
[2025-02-16] MEDS: diazePAM 5 MG TAB PO STA (04:29)
[2025-02-16 14:49] LABS: Barbiturate Screen,Urine Not Detected (NotDetected); Benzodiazepines Screen,Urine Not Detected (NotDetected); Opiate Screen,Urine Not Detected (NotDetected); Oxycodone Screen, Urine Not Detected (NotDetected); Phencyclidine Screen,Urine Not Detected (NotDetected); Tricyclic Antidepressant,Urine Not Detected (NotDetected); Urn Cannabinoid Scrn Detected (NotDetected)
[2025-02-16] MEDS ORDERED: IBUPROFEN 600 MG TAB PO PRN (17:17)
[2025-02-16] MEDS ORDERED: MAGNESIUM HYDROXIDE 2,400 MG/30 ML CUP PO PRN (17:17)
[2025-02-16] MEDS ORDERED: HALOPERIDOL LACTATE 5 MG/ML 1 ML VIAL IM PRN (17:17)
[2025-02-16] MEDS ORDERED: MAG HYDROX/AL HYDROX/SIMETH 355 ML BOTTLE PO PRN (17:17)
[2025-02-16] MEDS: LORazepam 1 MG TAB PO PRN (20:18)
[2025-02-16] MEDS: ACETAMINOPHEN TAB 325 MG TAB PO PRN (20:46)
[2025-02-16] MEDS: LOSARTAN 25 MG TAB PO STA (21:56)
[2025-02-17] MEDS: NICOTINE 14MG/24HR PATCH TRANSDERM SCH (08:02)
[2025-02-17 10:38] LABS: Basophils # (A) 0.02 10*3/uL (0.00-0.10); Basophils % (A) 0.2 %; Eosinophils # (A) 0.10 10*3/uL (0.04-0.35); Eosinophils % (A) 1.2 %; HCT 45.6 % (39.6-50.0); HGB 15.7 g/dL (13.0-17.0); Lymphocytes # (A) 1.18 10*3/uL (0.90-5.00); Lymphocytes % (A) 14.1 %; MCH 33.5 pg (27.0-32.0); MCHC 34.4 g/dL (32.0-37.0); MCV 97.4 fL (80.0-97.0); Monocytes # (A) 0.55 10*3/uL (0.20-1.00); Monocytes % (A) 6.6 %; Neutrophils # (A) 6.46 10*3/uL (1.80-7.70); Neutrophils % (A) 77.5 %; Platelet Count 390 10*3/uL (140-440); RBC 4.68 10*6/uL (4.40-5.60); RDW 13.7 % (11.5-14.5); WBC 8.34 10*3/uL (4.50-10.00)
[2025-02-17 10:56] LABS: ALT 61 U/L (4-49); AST 48 U/L (17-59); African American GFR (CKD) >90 (>60 ml/min/1.73 sqM); Albumin 4.9 g/dL (3.5-5.0); Alkaline Phosphatase 127 U/L (38-126); Anion Gap 12 mmol/L; Blood Urea Nitrogen 7 mg/dL (9-20); Calcium 10.2 mg/dL (8.4-10.2); Carbon Dioxide 27 mmol/L (22-30); Chloride 97 mmol/L (98-107); Glucose 115 mg/dL (74-99); Non-African American GFR(CKD) >90 (>60 ml/min/1.73 sqM); Potassium 4.6 mmol/L (3.5-5.1); Sodium 136 mmol/L (137-145); Total Protein 7.7 g/dL (6.3-8.2)
[2025-02-17] MEDS ORDERED: LORazepam 1 MG TAB PO PRN ×2 (12:57)
[2025-02-17] MEDS: ESCITALOPRAM 5 MG TAB PO STA (13:18)
--- NOTE | 2025-02-17 13:41 | P.HP ---
Psychiatric H&P - . H&P Date: 02/17/25 History & Physical: Allergies Allergy/AdvReac Type Severity Reaction Status Date / Time No Known Allergies Allergy Verified 02/16/25 14:31 Vital Signs Temp 97.4 F L 02/17/25 08:02 Pulse 104 H 02/17/25 08:02 Resp 16 02/16/25 21:00 BP 128/89 02/17/25 08:02 Pulse Ox 98 02/17/25 08:02 FiO2 Intake & Output 02/16/25 02/17/25 02/17/25 18:59 06:59 18:59 Weight 60.2 kg Laboratory Last Values WBC 8.34 10*3/uL (4.50-10.00) 02/17/25 09: RBC 4.68 10*6/uL (4.40-5.60) 02/17/25 09:27 Hgb 15.7 g/dL (13.0-17.0) 02/17/25 09:27 Hct 45.6 % (39.6-50.0) 02/17/25 09:27 MCV 97.4 fL (80.0-97.0) H 02/17/25 09:27 MCH 33.5 pg (27.0-32.0) H 02/17/25 09:27 MCHC 34.4 g/dL (32.0-37.0) 02/17/25 09:27 Plt Count 390 10*3/uL (140-440) 02/17/25 09:27 MPV 9.9 fL (9.5-12.2) 02/17/25 09:27 Immature Gran % (Auto) 0.4 % 02/17/25 09:27 Neutrophils % 77.5 % 02/17/25 09:27 Lymphocytes % 14.1 % 02/17/25 09:27 Monocytes % 6.6 % 02/17/25 09:27 Eosinophils % 1.2 % 02/17/25 09: Basophils % 0.2 % 02/17/25 09:27 Immature Gran # 0.03 10*3/uL (0.00-0.04) 02/17/25 09:27 Neutrophils # 6.46 10*3/uL (1.80-7.70) 02/17/25 09:27 Lymphocytes # 1.18 10*3/uL (0.90-5.00) 02/17/25 09:27 Monocytes # 0.55 10*3/uL (0.20-1.00) 02/17/25 09:27 Eosinophils # 0.10 10*3/uL (0.04-0.35) 02/17/25 09:27 Basophils # 0.02 10*3/uL (0.00-0.10) 02/17/25 09:27 Sodium 136 mmol/L (137-145) L 02/17/25 09:27 Potassium 4.6 mmol/L (3.5-5.1) 02/17/25 09:27 Chloride 97 mmol/L (98-107) L 02/17/25 09:27 Carbon Dioxide 27 mmol/L (22-30) 02/17/25 09:27 Anion Gap 12 mmol/L 02/17/25 09:27 BUN 7 mg/dL (9-20) L 02/17/25 09:27 Creatinine 0.84 mg/dL (0.66-1.25) 02/17/25 09:27 Est GFR (CKD-EPI)AfAm >90 (>60 ml/min/1.73 sqM) 02/17/25 09:27 Est GFR (CKD-EPI)NonAf >90 (>60 ml/min/1.73 sqM) 02/17/25 09:27 Glucose 115 mg/dL (74-99) H 02/17/25 09:27 Calcium 10.2 mg/dL (8.4-10.2) 02/17/25 09:27 Total Bilirubin 1.0 mg/dL (0.2-1.3) 02/17/25 09:27 AST 48 U/L (17-59) 02/17/25 09:27 ALT 61 U/L (4-49) H 02/17/25 09:27 Alkaline Phosphatase 127 U/L (38-126) H 02/17/25 09:27 Total Protein 7.7 g/dL (6.3-8.2) 02/17/25 09:27 Albumin 4.9 g/dL (3.5-5.0) 02/17/25 09:27 TSH 0.841 mIU/L (0.465-4.680) 02/17/25 09:27 Urine Opiates Screen Not Detected (NotDetected) 02/16/25 14:17 Ur Oxycodone Screen Not Detected (NotDetected) 02/16/25 14:17 Urine Methadone Screen Not Detected (NotDetected) 02/16/25 14:17 Ur Barbiturates Screen Not Detected (NotDetected) 02/16/25 14:17 U Tricyclic Antidepress Not Detected (NotDetected) 02/16/25 14:17 Ur Phencyclidine Scrn Not Detected (NotDetected) 02/16/25 14:17 Ur Amphetamines Screen Not Detected (NotDetected) 02/16/25 14:17 U Methamphetamines Scrn Not Detected (NotDetected) 02/16/25 14:17 U Benzodiazepines Scrn Not Detected (NotDetected) 02/16/25 14:17 Urine Cocaine Screen Not Detected (NotDetected) 02/16/25 14:17 U Marijuana (THC) Screen Detected (NotDetected) H 02/16/25 14:17 SARS-CoV-2 (PCR) Not Detected (Not Detectd) 02/16/25 14:17 02/17/25 12:53 IDENTIFYING DATA: Patient is a 54-year-old male, currently he has 2 kids he lives with his in a house, he works as a jones HPI: Patient presented to the hospital on a petition brought in by police. Patient was evaluated by EPS and according to note "Patient brought in by PD with petition after stabbing self in arm with hunting knife and expressed suicidal ideations. Patient assessed in ER19 from [id number]. Patient observed to be laying on hospital bed, appopriate appearance. Patient verbalizes struggling with upcoming divorce. States that last night he stabbed himself with a hunting knife to the right arm "looking for attention". Patient denies suicidal and homicidal ideations at this time to typewriter tester. Patient denies auditory and visual hallucinations to typewriter tester. Patient denies paranoia, and no delusional statements noted on assessment. Patient petitioned by police, "subject stated he is having suicidal thoughts due to an upcoming divorce. He admitted to self inflicted stab wound using a knife to his right arm". Patient denies any mental health history, and no inpatient or outpatient treatment. Patient verbalizes alcohol use 2-3 times per week with approx 6 beers. Denies history of withdrawal. Patient states hx of rehab about 20 years ago. Patient verbalizes smoking cigarettes 1/2ppd since age 14. Patient verbalizes good appetite and good sleep." Patient was seen today agreeable to speak to typewriter tester in the office. Patient claims that he cut himself in the arm with his knife. He states that he has been feeling depressed lately anxious, claims that he has been getting into fights with his . States that on Monday his told him that she was going to leave him and went to her friend's house. Claims that they have not been getting along. Claims that he stabbed himself with a knife to get attention from her and claims that he took pictures of it and send it to her. He states that then she called the police on him from the hospital. He was minimizing his depression and anxiety. Denies any other stressors besides relationship andino. Claims that he does not have any issues with sleep or anxiety at this time or appetite. He was fairly superficial about what had occurred and does not believe that he needs treatment and to be in the hospital. Patient denies any suicidal or homicidal ideations intent or plan. At this time patient denies any auditory or visual hallucinations. Patient denies any flight of ideas racing thoughts and increased in goal directed behavior. Patient admits to using alcohol regularly about 7 or 8 beers a day, denying any current withdrawal symptoms. Claims that he smokes cigarettes and also marijuana occasionally. PAST PSYCHIATRIC HISTORY: Patient has a history of depression, alcohol use. Patient denies being on any psychiatric medications. Patient denies any previous psychiatric hospitalizations. Patient denies any psychiatric outpatient follow-up. Patient denies any history of suicide attempts in the past. PMH: as per ER note ALLERGIES: as per EMR CHEMICAL DEPENDENCY HISTORY: as per HPI FAMILY PSYCHIATRIC/SUBSTANCE USE HISTORY: Denies SOCIAL HISTORY: Patient was born and raised in [facility]. Claims that he completed high school. States that he currently lives with his in a house, he has 2 kids he works currently as a jones. States that he went to detention for a DUI about 20 years ago. MENTAL STATUS EXAM: General Appearance: Patient appears to be thin, balding, stated age is alert, directable, and attempts to cooperate. Patient appears to have fair hygiene and grooming. Behavior: Patient is seated without any agitated behavior. Superficial Speech: Patient's speech is fluent and nonpressured. Mood/Affect: Patient reports their mood is depressed, affect is congruent and constricted. Suicidality/Homicidality: Patient denies having any homicidal ideation intent or plan. Denies any suicidal ideations intent or plan Perceptions: Patient denies any visual hallucinations and denies any auditory hallucinations Though content/process: There is no evidence of any delusional thought content and thought process is linear and goal-directed. Focused on discharge, minimizing Memory and concentration: AOX3, grossly intact for the purposes of this session. Can spell "WORLD" backwards Judgment and insight: Poor STRENGTHS/WEAKNESSES: strength is that patient is resilient. Weakness is that patient has poor judgment and is impulsive INTELLECT: Average IMPRESSIONS: Depressive disorder unspecified Alcohol use disorder Cannabis use disorder mild Nicotine dependence PLAN: -Patient is admitted under involuntary status to MHU for stabilization of psychiatric symptoms and safety. Patient has not signed adult voluntary form and has signed medication consent and is placed in patient's chart. A second certification was completed and along with petition will be filed for court. -Medications : Lexapro 5 mg today increased to 10 mg starting tomorrow for depression/anxiety, trazodone 50 mg nightly as needed for insomnia. -Ativan and Haldol PRN for agitation/aggression -Started thiamine, MVM for etoh use -CIWA protocol with Ativan PRN for ETOH withdrawal. Scheduled Librium for alcohol withdrawal with plan to taper. -Patient was counselled on substance abuse and desired to cut back on use. Will offer patient subtance use rehab -Patient was informed of the risks, benefits and side effects of the medications. Patient signed med consent form and was placed in chart. Patient was offered medication information and declined it -Internal Medicine consult to perform medical evaluation and physical. -NRT -nicotine patch -SW on board for discharge planning. Encourage patient to participate in groups to work on coping skills. Will await deferral and court date.
[2025-02-17 15:37] LABS: Cholesterol 185.00 mg/dL (0.00-200.00); HDL Cholesterol 97.20 mg/dL (40.00-60.00); LDL Cholesterol,Calculated 67.0 mg/dL (0.0-131.0); Triglycerides 104.00 mg/dL (0.00-149.00); VLDL Calculation 20.80 mg/dL (5.00-40.00)
[2025-02-17] MEDS: LOSARTAN 50 MG TAB PO SCH (15:48)
[2025-02-17 22:11] VITALS: RESP 18
[2025-02-18 08:13] VITALS: TEMP 98.2
[2025-02-18] MEDS: ESCITALOPRAM 10 MG TAB PO SCH (08:13)
[2025-02-18 09:08] LABS: Bilirubin,Urine Negative (Negative); Blood,Urine Negative (Negative); Color,Urine Yellow; Glucose,Urine (UA) Negative (Negative); Ketones,Urine Negative (Negative); Leukocyte Esterase,Urine Negative (Negative); Nitrite,Urine Negative (Negative); PH, Urine 5.5 (5.0-8.0); Protein,Urine Negative (Negative); Specific Gravity,Urine 1.023 (1.001-1.035); Urobilinogen,Urine <2.0 mg/dL (<2.0)
--- NOTE | 2025-02-18 11:11 | P.PN ---
Progress Note - Text Progress Note Date: 02/18/25 Interval History: Patient was seen today for psychiatric follow up and was agreeable to speak in the office. Patient continues to apologize about what had occurred to return to the hospital. He claims that he is doing a bit better today with regards to his mood and anxiety. Denying any side effects from the medications at this time. Claims that he has been having less withdrawal symptoms today. He is interested in trying the naltrexone for alcohol cravings. He is not interested in going to rehab due to having to work. Claims that he did not need trazodone last night slept fairly, appetite is improving. Claims that he is going to some groups. Fairly focused on discharge. Currently awaiting the deferral with his estate attorney. Denying any auditory or visual hallucinations denies any suicidal or homicidal ideations. MENTAL STATUS EXAM: General Appearance: Patient appears to be thin, balding, stated age is alert, directable, and attempts to cooperate. Patient appears to have fair hygiene and grooming. Behavior: Patient is seated without any agitated behavior. Superficial, imp roving mildly Speech: Patient's speech is fluent and nonpressured. Mood/Affect: Patient reports their mood is improving mildly, affect is congruent and constricted. Suicidality/Homicidality: Patient denies having any homicidal ideation intent or plan. Denies any suicidal ideations intent or plan Perceptions: Patient denies any visual hallucinations and denies any auditory hallucinations Though content/process: There is no evidence of any delusional thought content and thought process is linear and goal-directed. Focused on discharge, minimizing, improving mildly Memory and concentration: AOX3, grossly intact for the purposes of this session Judgment and insight: Poor, improving IMPRESSIONS: Depressive disorder unspecified Alcohol use disorder Cannabis use disorder mild Nicotine dependence PLAN: -Patient is admitted under involuntary status to MHU for stabilization of psychiatric symptoms and safety. Patient has not signed adult voluntary form and has signed medication consent and is placed in patient's chart. -Medications : Lexapro 10 mg for depression/anxiety, trazodone 50 mg nightly as needed for insomnia. agreeable to try naltrexone 50 mg daily for etoh cravings. -Ativan and Haldol PRN for agitation/aggression -thiamine, MVM for etoh use -CIWA protocol with Ativan PRN for ETOH withdrawal. continue tapering Librium for alcohol withdrawal -NRT -nicotine patch -SW on board for discharge planning. Encourage patient to participate in groups to work on coping skills. Will await deferral and court date. patient refusing substance rehab.
[2025-02-18] MEDS: NALTREXONE HCL 50 MG TAB PO SCH (11:53)
--- NOTE | 2025-02-18 12:49 | CONS ---
CONSULTATION REASON FOR CONSULTATION: Advice regarding cholecystitis and other medical issues, requested by psychiatrist. HISTORY OF PRESENT ILLNESS: 54-year-old gentleman with a past medical history of hypertension, history of DJD, back surgery, was admitted for further evaluation of depressive disorder. The patient had history of alcohol. Also, there is no history of any fever or rigors. No history of headache, loss of consciousness, or seizures at this time. PAST MEDICAL HISTORY: Hypertension, DJD, history of kidney stones, history of alcohol abuse. Rest of history and chart are also reviewed. HOME MEDICATIONS: Reviewed. Include Cozaar. ALLERGIES: None. FAMILY HISTORY: No history of heart disease or strokes in the family. SOCIAL HISTORY: History of alcohol, daily smoking. REVIEW OF SYSTEMS: 14-point review of systems negative except as mentioned. PHYSICAL EXAMINATION: VITAL SIGNS: Pulse is 104, blood pressure 120/88, and respirations 16. HEENT: Conjunctivae normal. NECK: No jugular venous distention. CARDIOVASCULAR: S1, S2. RESPIRATION: Breath sounds diminished at the bases. ABDOMEN: Soft, nontender. EXTREMITIES: Legs, no edema, no swelling. NERVOUS SYSTEM: Nonfocal. LABORATORY DATA: Reviewed. ASSESSMENT: 1. Depression. 2. History of ethyl alcohol. 3. Hyponatremia. 4. Hypertension. 5. History of degenerative joint disease. 6. History of nephrolithiasis. 7. History of nicotine dependence. RECOMMENDATION: This 54-year-old gentleman presented with multiple complex medical issues. We will monitor the patient closely. I would recommend to continue the current medications and recommend resume the home medications. The vitals are stable currently, but I would recommend to watch for any alcohol withdrawal symptoms. We will follow the patient if necessary. Recommend close followup with primary physician. MMODL / IJN: [id number] /
[2025-02-18 13:54] LABS: Glucose,Whole Blood 236 mg/dL (70-110)
[2025-02-18 14:06] VITALS: BP 163/87; PULSE 83
[2025-02-18 20:33] LABS: Urine Alcohol Negative (Negative); Urine Barbiturate Negative (Negative)
--- NOTE | 2025-02-19 11:52 | P.DS ---
Providers Date of admission: 02/16/25 17:06 Expected date of discharge: 02/18/25 Attending physician: Buck Puentes MD Consults: 02/16/25 17:17 Consult Physician Routine Consulting Provider: Talon Avina Consult Reason/Comments: History and Physical, New Admission Do you want consulting provider notified?: Yes Primary care physician: David Cadena MD - Discharge Diagnosis(es) (1) Depressive disorder Status: Acute Priority: High (2) Alcohol use disorder Status: Acute Priority: High (3) Cannabis use disorder, mild, abuse Status: Acute Priority: Medium (4) Nicotine dependence Status: Acute Priority: Low Hospital Course: Admission HPI: Admission note was completed by financial underwriter "Patient is a 54-year-old male, currently he has 2 kids he lives with his in a house, he works as a jones. Patient presented to the hospital on a petition brought in by police. Patient was evaluated by EPS and according to note "Patient brought in by PD with petition after stabbing self in arm with hunting knife and expressed suicidal ideations. Patient assessed in ER19 from [id number]. Patient observed to be laying on hospital bed, appopriate appearance. Patient verbalizes struggling with upcoming divorce. States that last night he stabbed himself with a hunting knife to the right arm "looking for attention". Patient denies suicidal and homicidal ideations at this time to financial underwriter. Patient denies auditory and visual hallucinations to financial underwriter. Patient denies paranoia, and no delusional statements noted on assessment. Patient petitioned by police, "subject stated he is having suicidal thoughts due to an upcoming divorce. He admitted to self inflicted stab wound using a knife to his right arm". Patient denies any mental health history, and no inpatient or outpatient treatment. Patient verbalizes alcohol use 2-3 times per week with approx 6 beers. Denies history of withdrawal. Patient states hx of rehab about 20 years ago. Patient verbalizes smoking cigarettes 1/2ppd since age 14. Patient verbalizes good appetite and good sleep." Patient was seen today agreeable to speak to financial underwriter in the office. Patient claims that he cut himself in the arm with his knife. He states that he has been feeling depressed lately anxious, claims that he has been getting into fights with his . States that on Monday his told him that she was going to leave him and went to her friend's house. Claims that they have not been getting along. Claims that he stabbed himself with a knife to get attention from her and claims that he took pictures of it and send it to her. He states that then she called the police on him from the hospital. He was minimizing his depressi on and anxiety. Denies any other stressors besides relationship andino. Claims that he does not have any issues with sleep or anxiety at this time or appetite. He was fairly superficial about what had occurred and does not believe that he needs treatment and to be in the hospital. Patient denies any suicidal or homicidal ideations intent or plan. At this time patient denies any auditory or visual hallucinations. Patient denies any flight of ideas racing thoughts and increased in goal directed behavior. Patient admits to using alcohol regularly about 7 or 8 beers a day, denying any current withdrawal symptoms. Claims that he smokes cigarettes and also marijuana occasionally." Hospital course: Upon admission to the unit patient was admitted involuntarily on a petition and certificate and a second certificate was completed and faxed to the courts. Patient is currently awaiting to speak with civil attorney about the deferral scheduled for 02/19. Patient was initially going to withdrawals, depressed and anxious however with time and treatment patient got along well with other patients on the unit and followed unit protocol. Patient was compliant with the medications and denied any side effects throughout hospital course. Patient was started on Lexapro increased to 10 mg daily for depression/anxiety, trazodone as needed for insomnia, naltrexone 50 mg p.o. daily for alcohol cravings. Patient spoke of his stressors and engaged in therapy both group/activity therapy. Patient was also seen by medical team for history and physical exam. On 02/18 patient was coming out of the lunch and turned the corner and apparently fell to the ground hitting his head. An A team was called the medicine team to evaluate patient and recommended patient go to the ER for further workup. Patient will be discharged from the mental health unit. Mental status exam: Please refer to progress note from 02/18 Impression: Depressive disorder unspecified Alcohol use disorder Cannabis use disorder mild abuse Nicotine dependence Plan: -Continue with discharge today to given patient's closed head injury and syncopal episode. Further workup to be completed in the ER. Please consult psychiatry once patient is medically stabilized to return back to the psychiatric unit. Can continue current medications. Patient Condition at Discharge: Serious Plan - Discharge Summary New Discharge Prescriptions: No Action Losartan [Cozaar] 50 mg PO DAILY Discharge Medication List Losartan [Cozaar] 50 mg PO DAILY 02/17/25 [History] Follow up Appointment(s)/Referral(s): David Cadena MD [Primary Care Provider] - 1-2 days Activity/Diet/Wound Care/Special Instructions: [facility] Discharge Info Avoid the use of street drugs and alcohol. Take all medications as prescribed. When you are in need of refills on your medications, please contact your outpatient medical provider and/or outpatient psychiatrist. Please go to your scheduled outpatient appointments for aftercare treatment. If symptoms return or become worse, call the crisis line at or and/or visit the nearest emergency room for assistance. National Suicide and Crisis Lifeline - call or text 113.
== END 2025-02-18 14:05 | disposition short-term general hospital (02) | DRG 881 ==
LOC: EC 23:24 → 3MHU 02-16 17:06
PROVIDERS: ADMIT Psychiatry & Neurology Psychiatry; ATTEND Psychiatry & Neurology Psychiatry
PROC: 0JQG3ZZ Repair Right Lower Arm Subcutaneous Tissue and Fascia, Percutaneous Approach (ICD-10-PCS; principal; 2025-02-16)
DX: F32.A Depression, unspecified (principal); E87.1 Hypo-osmolality and hyponatremia; S09.8XXA Other specified injuries of head, initial encounter; F10.139 Alcohol abuse with withdrawal, unspecified; I10 Essential (primary) hypertension; F12.10 Cannabis abuse, uncomplicated; R45.851 Suicidal ideations; X78.1XXA Intentional self-harm by knife, initial encounter; S51.811A Laceration without foreign body of right forearm, initial encounter; F17.210 Nicotine dependence, cigarettes, uncomplicated; F41.9 Anxiety disorder, unspecified; W18.30XA Fall on same level, unspecified, initial encounter; Y92.233 Cafeteria of hospital as the place of occurrence of the external cause; R55 Syncope and collapse; M19.90 Unspecified osteoarthritis, unspecified site; Z63.5 Disruption of family by separation and divorce; Z79.899 Other long term (current) drug therapy; Z11.52 Encounter for screening for COVID-19
CPT/HCPCS: 80053; 80061; 80306; 81003; 82075; 83036; 84443; 85025; 87635; 96372; 99285

== ENCOUNTER 2025-02-18 14:10 | Inpatient (IN) | payer OTHER ==
--- NOTE | 2025-02-18 14:23 | ED ---
Head Injury HPI - General Chief complaint: Head Injury Stated complaint: Fall Head Injury Time Seen by Provider: 02/18/25 14:22 Source: patient, RN notes reviewed, old records reviewed Mode of arrival: wheelchair Limitations: no limitations - History of Present Illness Initial comments: This is a 54-year-old male to the ER for evaluation today. This patient presents today for evaluation of fall fall on [address]. fall with head injury. Patient sent to the ER for CT scanning regarding trauma MD Complaint: head injury, head pain, fall -: minutes(s) Mechanism of Injury: mechanical fall Location: parietal Loss of Consciousness: yes Previous Trauma to this Area: Yes Place: home Radiation: none Severity: moderate Severity scale (1-10): 6 Consistency: constant Provoking factors: none known - Related Data Home Medications Medication Instructions Recorded Confirmed Losartan [Cozaar] 50 mg PO DAILY 02/17/25 02/17/25 Allergies/Adverse reactions: Allergies Allergy/AdvReac Type Severity Reaction Status Date / Time No Known Allergies Allergy Verified 02/16/25 14:31 Review of Systems ROS Statement: Those systems with pertinent positive or pertinent negative responses have been documented in the HPI. ROS Other: All systems not noted in ROS Statement are negative. Past Medical History Past Medical History: Hypertension, Osteoarthritis (OA) Additional Past Medical History / Comment(s): kidney stone, etoh History of Any Multi-Drug Resistant Organisms: None Reported Past Surgical History: Back Surgery, Cholecystectomy, Hernia Repair, Orthopedic Surgery Additional Past Surgical History / Comment(s): BRAIN SURGERY FOR A BLOOD CLOT , HIATAL HERNIA , knee, neck Past Anesthesia/Blood Transfusion Reactions: Postoperative Nausea & Vomiting (PONV) Past Psychological History: No Psychological Hx Reported Smoking Status: Current every day smoker Past Alcohol Use History: Abuse, Daily, Heavy Past Drug Use History: None Reported - Past Family History Mother Family Medical History: No Reported History General Exam Limitations: no limitations General appearance: alert, in no apparent distress Head exam: Present: atraumatic, normocephalic, normal inspection Eye exam: Present: normal appearance, PERRL, EOMI. Absent: scleral icterus, conjunctival injection, periorbital swelling ENT exam: Present: normal exam, mucous membranes moist Neck exam: Present: normal inspection. Absent: tenderness, meningismus, lymphadenopathy Respiratory exam: Present: normal lung sounds bilaterally. Absent: respiratory distress, wheezes, rales, rhonchi, stridor Cardiovascular Exam: Present: regular rate, normal rhythm, normal heart sounds. Absent: systolic murmur, diastolic murmur, rubs, gallop, clicks GI/Abdominal exam: Present: soft, normal bowel sounds. Absent: distended, tenderness, guarding, rebound, rigid Extremities exam: Present: normal inspection, full ROM, normal capillary refill. Absent: tenderness, pedal edema, joint swelling, calf tenderness Back exam: Present: normal inspection Neurological exam: Present: alert, oriented X3, CN II-XII intact Psychiatric exam: Present: normal affect, normal mood Skin exam: Present: warm, dry, intact, normal color. Absent: rash Course Vital Signs 02/18/25 14:16 Temperature 97.7 F Pulse Rate 72 Respiratory 20 Rate Blood Pressure 149/84 O2 Sat by Pulse 98 Oximetry - Reevaluation(s) Reevaluation #1: 02/18/25 14:23 Medical records reviewed Reevaluation #2: 02/18/25 16:52 Patient is in no distress here in the ER Reevaluation #3: 02/18/25 16:52 Patient informed of results questions answered Reevaluation #4: Was pt. sent in by a medical professional or institution (, PA, BELT LINE FEEDER, urgent care, hospital, or longterm...) When possible be specific @ -no Did you speak to anyone other than the patient for history (EMS, parent, family, police, friend...)? What history was obtained from this source @ -no Did you review nursing and triage notes (agree or disagree)? Why? @ -agree Are old charts reviewed (outside hosp., previous admission, EMS record, old EKG, old radiological studies, urgent care reports/EKG's, longterm records)? Report findings @ -yes Differential Diagnosis (chest pain, altered mental status, abdominal pain women, abdominal pain men, vaginal bleeding, weakness, fever, dyspnea, syncope, headache, dizziness, GI bleed, back pain, seizure, CVA, palpatations, mental health, musculoskeletal)? @ -prior EKG interpreted by me (3pts min.). @ -yes X-rays interpreted by me (1pt min.). @ -yes negative for acute disease CT interpreted by me (1pt min.). @ -no U/S interpreted by me (1pt. min.). @ -no What testing was considered but not performed or refused? (CT, X-rays, U/S, labs)? Why? @ -none What meds were considered but not given or refused? Why? @ -none Did you discuss the management of the patient with other professionals (professionals i.e. , PA, BELT LINE FEEDER, lab, RT, psych nurse, social service assistant, astronomy professor, teacher, armed custom protection officer, case management coordinator)? Give summary @ -no Was smoking cessation discussed for >3mins.? @ -no Was critical care preformed (if so, how long)? @ -no Were there social determinants of health that impacted care today? How? (Homelessness, low income, unemployed, alcoholism, drug addiction, transportation, low edu. Level, literacy, decrease access to med. care, care home, rehab)? @ -none Was there de-escalation of care discussed even if they declined (Discuss DNR or withdrawal of care, Hospice)? DNR status @ -no What co-morbidities impacted this encounter? (DM, HTN, Smoking, COPD, CAD, Cancer, CVA, ARF, Chemo, Hep., AIDS, mental health diagnosis, sleep apnea, morbid obesity)? @ -none Was patient admitted / discharged? Hospital course, mention meds given and route, prescriptions, significant lab abnormalities, going to OR and other pertinent info. @ - Undiagnosed new problem with uncertain prognosis? @ -no Drug Therapy requiring intensive monitoring for toxicity (Heparin, Nitro, Insulin, Cardizem)? @ -no Were any procedures done? @ -no Diagnosis/symptom? @ - Acute, or Chronic, or Acute on Chronic? @ -Acute Uncomplicated (without systemic symptoms) or Complicated (systemic symptoms)? @ -Complicated Side effects of treatment? @ -no Exacerbation, Progression, or Severe Exacerbation? @ -exacerbation Poses a threat to life or bodily function? How? (Chest pain, USA, PA, pneumonia, PE, COPD, DKA, ARF, appy, cholecystitis, CVA, Diverticulitis, Homicidal, Suicidal, threat to staff... and all critical care pts) @ -yes Reevaluation #5: Differential Headache: Migraine, tension, cluster, carbon monoxide, central venous thrombosis, pension karma temporal arteritis, acute closure glaucoma, intercranial hemorrhage, mastoiditis, sinusitis, head injury, this is not meant to be an all-inclusive list. Medical Decision Making - Medical Decision Making 54-year-old male to ER for head injury no acute traumatic injury found patient can be discharged back to 3 W. - Radiology Data Radiology results: report reviewed (CT brain C spine negative ), image reviewed Disposition Clinical Impression: Closed head injury Disposition: HOME SELF-CARE Condition: Good Instructions (If sedation given, give patient instructions): Head Injury (ED) Is patient prescribed a controlled substance at d/c from ED?: No Referrals: David Cadena MD [Primary Care Provider] - 1-2 days Time of Disposition: 16:30
--- NOTE | 2025-02-18 15:14 | CT ---
EXAMINATION TYPE: CT brain beto wo con DATE OF EXAM: 02/18/2025 COMPARISON: Head CT dated 03/22/2010 CLINICAL INDICATION: Male, 54 years old with history of fall; [facility], Fall, hit head, no LOC. No thinner s. TECHNIQUE: CT scan of the head and cervical spine are performed without contrast. CT DLP: 1349.[address] CTDI: mGy Automated exposure control for dose reduction was used. Findings: Head CT: Ventricles, basal cisterns and sulci over convexities within normal limits and there is no mass, mass effect or shift of midline structures. There is a small to moderate focal area of encephalomalacia involving the right frontal lobe. There i s a right frontal craniotomy. There is no acute intra or extra-axial hemorrhage.. Posterior fossa including the brainstem, fourth ventricle and cerebellar pontine angles are grossly n ormal. The intraorbital contents appear normal and symmetric. Visualized paranasal sinuses are well aerated. CT cervical spine: Craniovertebral junction relationships and prevertebral soft tissues are normal. The cervical vertebral segments are normal in height and alignment and there is no fracture subluxati on. There is anterior metallic and interbody fusion of C4, C5, C6 and C7. There is mild degenerative dise ase at the C7/T1 level. The bony cervical canal is widely patent and there is no bony encroachment of the neural foramina. The paraspinal soft tissues unremarkable. IMPRESSION: 1. Head CT: No acute bleed or mass effect. Right frontal craniotomy with underlying encephalomalacia of the right frontal lobe. 2. CT cervical spine: No acute trauma. Cervical fusion from C4 through C7 [facility], , 02/18/2025 3:12 PM
[2025-02-18] MEDS: SODIUM CHLORIDE 0.9% 1,000 ML IV ONE (18:26)
[2025-02-18 18:32] LABS: Basophils # (A) 0.04 10*3/uL (0.00-0.10); Basophils % (A) 0.5 %; Eosinophils # (A) 0.10 10*3/uL (0.04-0.35); Eosinophils % (A) 1.2 %; HCT 44.2 % (39.6-50.0); HGB 15.6 g/dL (13.0-17.0); Lymphocytes # (A) 1.93 10*3/uL (0.90-5.00); Lymphocytes % (A) 23.1 %; MCH 34.0 pg (27.0-32.0); MCHC 35.3 g/dL (32.0-37.0); MCV 96.3 fL (80.0-97.0); Monocytes # (A) 0.63 10*3/uL (0.20-1.00); Monocytes % (A) 7.5 %; Neutrophils # (A) 5.64 10*3/uL (1.80-7.70); Neutrophils % (A) 67.5 %; Platelet Count 363 10*3/uL (140-440); RBC 4.59 10*6/uL (4.40-5.60); RDW 13.2 % (11.5-14.5); WBC 8.36 10*3/uL (4.50-10.00)
[2025-02-18 18:46] LABS: INR 1.0 (<1.2); Partial Thromboplastin Time 26.5 sec (22.0-30.0); Prothrombin Time 10.8 sec (10.0-12.5)
[2025-02-18 19:01] LABS: ALT 42 U/L (4-49); AST 26 U/L (17-59); African American GFR (CKD) >90 (>60 ml/min/1.73 sqM); Albumin 5.2 g/dL (3.5-5.0); Alkaline Phosphatase 101 U/L (38-126); Anion Gap 10 mmol/L; Blood Urea Nitrogen 12 mg/dL (9-20); Calcium 10.2 mg/dL (8.4-10.2); Carbon Dioxide 26 mmol/L (22-30); Chloride 102 mmol/L (98-107); Glucose 98 mg/dL (74-99); Magnesium 2.2 mg/dL (1.6-2.3); Non-African American GFR(CKD) >90 (>60 ml/min/1.73 sqM); Potassium 4.2 mmol/L (3.5-5.1); Sodium 138 mmol/L (137-145); Total Protein 7.9 g/dL (6.3-8.2)
[2025-02-18 19:09] LABS: NT-Pro-B-Type Natriuretic Pept <20 pg/mL
[2025-02-18] MEDS ORDERED: MAG HYDROX/AL HYDROX/SIMETH 355 ML BOTTLE PO PRN (19:52)
[2025-02-18] MEDS ORDERED: LORazepam 1 MG TAB PO PRN ×2 (19:52)
[2025-02-18] MEDS ORDERED: IBUPROFEN 600 MG TAB PO PRN (19:52)
[2025-02-18] MEDS ORDERED: ACETAMINOPHEN TAB 325 MG TAB PO PRN (19:52)
[2025-02-18] MEDS ORDERED: MAGNESIUM HYDROXIDE 2,400 MG/30 ML CUP PO PRN (19:52)
[2025-02-18] MEDS ORDERED: HALOPERIDOL LACTATE 5 MG/ML 1 ML VIAL IM PRN (19:52)
[2025-02-18] MEDS: NICOTINE 14MG/24HR PATCH TRANSDERM SCH (20:47)
[2025-02-18] MEDS: LORazepam 1 MG TAB PO PRN (20:48)
[2025-02-19] MEDS: NALTREXONE HCL 50 MG TAB PO SCH (08:20)
[2025-02-19] MEDS: LOSARTAN 50 MG TAB PO SCH (08:20)
[2025-02-19] MEDS: ESCITALOPRAM 10 MG TAB PO SCH (08:21)
[2025-02-19] MEDS: MULTIVITAMINS, THERA 1 EACH TAB PO SCH (08:21)
[2025-02-19] MEDS: FOLIC ACID 1 MG TAB PO SCH (08:21)
[2025-02-19] MEDS: THIAMINE 100 MG TAB PO SCH (08:21)
--- NOTE | 2025-02-19 11:58 | P.HP ---
Psychiatric H&P - . H&P Date: 02/19/25 History & Physical: Allergies Allergy/AdvReac Type Severity Reaction Status Date / Time No Known Allergies Allergy Verified 02/16/25 14:31 Vital Signs Temp 97.4 F L 02/19/25 08:19 Pulse 80 02/19/25 08:19 Resp 20 02/19/25 08:19 BP 122/82 02/19/25 08:19 Pulse Ox 99 02/19/25 08:19 FiO2 Intake & Output 02/18/25 02/19/25 02/19/25 18:59 06:59 18:59 Weight 65.771 kg 60.583 kg Laboratory Last Values WBC 8.36 10*3/uL (4.50-10.00) 02/18/25 18:19 RBC 4.59 10*6/uL (4.40-5.60) 02/18/25 18:19 Hgb 15.6 g/dL (13.0-17.0) 02/18/25 18:19 Hct 44.2 % (39.6-50.0) 02/18/25 18:19 MCV 96.3 fL (80.0-97.0) 02/18/25 18:19 MCH 34.0 pg (27.0-32.0) H 02/18/25 18:19 MCHC 35.3 g/dL (32.0-37.0) 02/18/25 18:19 Plt Count 363 10*3/uL (140-440) 02/18/25 18:19 MPV 9.8 fL (9.5-12.2) 02/18/25 18:19 Immature Gran % (Auto) 0.2 % 02/18/25 18:19 Neutrophils % 67.5 % 02/18/25 18:19 Lymphocytes % 23.1 % 02/18/25 18:19 Monocytes % 7.5 % 02/18/25 18:19 Eosinophils % 1.2 % 02/18/25 18:19 Basophils % 0.5 % 02/18/25 18:19 Immature Gran # 0.02 10*3/uL (0.00-0.04) 02/18/25 18:19 Neutrophils # 5.64 10*3/uL (1.80-7.70) 02/18/25 18:19 Lymphocytes # 1.93 10*3/uL (0.90-5.00) 02/18/25 18:19 Monocytes # 0.63 10*3/uL (0.20-1.00) 02/18/25 18:19 Eosinophils # 0.10 10*3/uL (0.04-0.35) 02/18/25 18:19 Basophils # 0.04 10*3/uL (0.00-0.10) 02/18/25 18:19 PT 10.8 sec (10.0-12.5) 02/18/25 18:19 INR 1.0 (<1.2) 02/18/25 18:19 APTT 26.5 sec (22.0-30.0) 02/18/25 18:19 D-Dimer 0.20 mg/L FEU (<0.60) 02/18/25 18:19 Sodium 138 mmol/L (137-145) 02/18/25 18:19 Potassium 4.2 mmol/L (3.5-5.1) 02/18/25 18:19 Chloride 102 mmol/L (98-107) 02/18/25 18:19 Carbon Dioxide 26 mmol/L (22-30) 02/18/25 18:19 Anion Gap 10 mmol/L 02/18/25 18:19 BUN 12 mg/dL (9-20) 02/18/25 18:19 Creatinine 0.84 mg/dL (0.66-1.25) 02/18/25 18:19 Est GFR (CKD-EPI)AfAm >90 (>60 ml/min/1.73 sqM) 02/18/25 18:19 Est GFR (CKD-EPI)NonAf >90 (>60 ml/min/1.73 sqM) 02/18/25 18:19 Glucose 98 mg/dL (74-99) 02/18/25 18:19 Plasma Lactic Acid Isaias 1.0 mmol/L (0.7-2.0) 02/18/25 18:19 Calcium 10.2 mg/dL (8.4-10.2) 02/18/25 18:19 Phosphorus 4.3 mg/dL (2.5-4.5) 02/18/25 18:19 Magnesium 2.2 mg/dL (1.6-2.3) 02/18/25 18:19 Total Bilirubin 0.8 mg/dL (0.2-1.3) 02/18/25 18:19 AST 26 U/L (17-59) 02/18/25 18:19 ALT 42 U/L (4-49) 02/18/25 18:19 Alkaline Phosphatase 101 U/L (38-126) 02/18/25 18:19 Troponin I <0.012 ng/mL (0.000-0.034) 02/18/25 18:19 NT-Pro-B Natriuret Pep <20 pg/mL 02/18/25 18:19 Total Protein 7.9 g/dL (6.3-8.2) 02/18/25 18:19 Albumin 5.2 g/dL (3.5-5.0) H 02/18/25 18:19 02/19/25 11:52 IDENTIFYING DATA: Patient is a 54-year-old male, currently he has 2 kids he lives with his in a house, he works as a jones HPI: Patient was admitted to the mental health unit and a initial psychiatric evaluation was completed by instructional writer on 02/17 and according to note "presented to the hospital on a petition brought in by police. Patient was evaluated by EPS and according to note "Patient brought in by PD with petition after stabbing self in arm with hunting knife and expressed suicidal ideations. Patient assessed in ER19 from [id number]. Patient observed to be laying on hospital bed, appopriate appearance. Patient verbalizes struggling with upcoming divorce. States that last night he stabbed himself with a hunting knife to the right arm "looking for attention". Patient denies suicidal and homicidal ideations at this time to instructional writer. Patient denies auditory and visual hallucinations to instructional writer. Patient denies paranoia, and no delusional statements noted on assessment. Patient petitioned by police, "subject stated he is having suicidal thoughts due to an upcoming divorce. He admitted to self inflicted stab wound using a knife to his right arm". Patient denies any mental health history, and no inpatient or outpatient treatment. Patient verbalizes alcohol use 2-3 times per week with approx 6 beers. Denies history of withdrawal. Patient states hx of rehab about 20 years ago. Patient verbalizes smoking cigarettes 1/2ppd since age 14. Patient verbalizes good appetite and good sleep." Patient was seen today agreeable to speak to instructional writer in the office. Patient claims that he cut himself in the arm with his knife. He states that he has been feeling depressed lately anxious, claims that he has been getting into fights with his . States that on his told him that she was going to leave him and went to her friend's house. Claims that they have not been getting along. Claims that he stabbed himself with a knife to get attention from her and claims that he took pictures of it and send it to her. He states that then she called the police on him from the hospital. He was minimizing his depression and anxiety. Denies any other stressors besides relationship andino. Claims that he does not have any issues with sleep or anxiety at this time or appetite. He was fairly superficial about what had occurred and does not believe that he needs treatment and to be in the hospital. Patient denies any suicidal or homicidal ideations intent or plan. At this time patient denies any auditory or visual hallucinations. Patient denies any flight of ideas racing thoughts and increased in goal directed behavior. Patient admits to using alcohol regularly about 7 or 8 beers a day, denying any current withdrawal symptoms. Claims that he smokes cigarettes and also marijuana occasionally." Patient was discharged yesterday to the ER for evaluation after a syncopal episode close head injury. Patient had a CAT scan done of his brain did not show any acute changes. Blood work was also negative not remarkable for any causes. Likely attributed to orthostatic hypotension. Patient was transferred back to the mental health unit last night. Agreeable to be seen today by instructional writer in the office. Claims that he is doing a bit better today continues to claim that he is taking his medications not reporting any side effects today. Trying to remain positive denies any anxiety or mood today. Claims that he slept fairly last night denies any issues with appetite. At this time is denying any suicidal or homicidal ideations intent or plan denies any auditory or visual hallucinations. He remains fairly focused on discharge, continues to minimize at times The rest of the past psychiatric and social history was taken from previous H&P PAST PSYCHIATRIC HISTORY: Patient has a history of depression, alcohol use. Patient denies being on any psychiatric medications. Patient denies any previous psychiatric hospitalizations. Patient denies any psychiatric outpatient follow-up. Patient denies any history of suicide attempts in the past. PMH: as per ER note ALLERGIES: as per EMR CHEMICAL DEPENDENCY HISTORY: as per HPI FAMILY PSYCHIATRIC/SUBSTANCE USE HISTORY: Denies SOCIAL HISTORY: Patient was born and raised in [facility]. Claims that he completed high school. States that he currently lives with his in a house, he has 2 kids he works currently as a jones. States that he went [facility] about 20 years ago. MENTAL STATUS EXAM: General Appearance: Patient appears to be thin, balding, stated age is alert, directable, and attempts to cooperate. Patient appears to have fair hygiene and grooming. Behavior: Patient is seated without any agitated behavior. Superficial, improving mildly improving mildly Speech: Patient's speech is fluent and nonpressured. Mood/Affect: Patient reports their mood is improving mildly, affect is congruent and constricted. Suicidality/Homicidality: Patient denies having any homicidal ideation intent or plan. Denies any suicidal ideations intent or plan Perceptions: Patient denies any visual hallucinations and denies any auditory hallucinations Though content/process: There is no evidence of any delusional thought content and thought process is linear and goal-directed. Focused on discharge, minimizing Memory and concentration: AOX3, grossly intact for the purposes of this session. Can spell "WORLD" backwards Judgment and insight: Poor, improving mildly STRENGTHS/WEAKNESSES: strength is that patient is resilient. Weakness is that patient has poor judgment and is impulsive INTELLECT: Average IMPRESSIONS: Depressive disorder unspecified Alcohol use disorder Cannabis use disorder mild Nicotine dependence PLAN: -Patient is admitted under involuntary status to MHU for stabilization of psychiatric symptoms and safety. Patient has not signed adult voluntary form and has signed medication consent and is placed in patient's chart. A second c ertification was completed and along with petition will be filed for court. -Medications : Lexapro 10 mg daily for depression/anxiety, trazodone 50 mg nightly as needed for insomnia. -Ativan and Haldol PRN for agitation/aggression -thiamine, MVM for etoh use -CIWA protocol with Ativan PRN for ETOH withdrawal. Scheduled Librium for alcohol withdrawal, continuing to taper off -Patient is not interested in inpatient rehab at this time and would like to outpatient. -NRT -nicotine patch - on board for discharge planning. Encourage patient to participate in groups to work on coping skills. Patient is scheduled to have a meeting with the collections attorney today for a deferral, Anibal hearing scheduled for 02/26. If patient does end up signing deferral and improving psychiatrically that hopeful for disc annalee Monday02/19/25 13:37
--- NOTE | 2025-02-20 00:41 | CONS ---
CONSULTATION REASON FOR CONSULTATION: Advice regarding fall and syncope. HISTORY OF PRESENT ILLNESS: This 54-year-old gentleman with a past medical history of multiple medical problems including hypertension, admitted for Psych evaluation. The patient also had a history of EtOH. The patient apparently had a fall. The patient was feeling dizzy, especially when standing up yesterday and the patient was monitored in the ER and was admitted back to the psych floor at this time. There is no history of fever, rigors, or chills. His stroke workup was negative. The blood pressure was 116/72. There is no history of fever, rigors, or chills at this time. PAST MEDICAL HISTORY: History of hypertension, history of DJD. Rest of history and rest of the chart is also reviewed. HOME MEDICATIONS: Cozaar. ALLERGIES: None. FAMILY HISTORY: No history of heart disease or strokes in the family. SOCIAL HISTORY: History of THC, alcohol. REVIEW OF SYSTEMS: A 14-point review of systems negative except as mentioned earlier. PHYSICAL EXAMINATION: VITAL SIGNS: Pulse is 84, blood pressure 110/74, and respirations 20. HEENT: Conjunctivae normal. NECK: No jugular venous distention. CARDIOVASCULAR: S1, S2. ABDOMEN: Soft. LEGS: No edema. NERVOUS SYSTEM: No focal deficits. LABORATORY DATA: Reviewed. ASSESSMENT: 1. Syncope, possibly vasovagal, rule out orthostatic hypotension. 2. History of hypertension. 3. History of EtOH. 4. History of cholecystectomy. 5. Depression. 6. History of hyponatremia. 7. History of Hypertension. 8. History of nephrolithiasis. 9. Multiple complex medical issues. RECOMMENDATIONS AND DISCUSSION: Recommend to continue current management. I recommend set of orthostatic vitals and orthostatics positive. I recommend hold the losartan, the dose will be reduced to 25. See orders for details. Further recommendations to follow. MMODL / IJN: [id number] /
[2025-02-20] MEDS: LOSARTAN 25 MG TAB PO SCH (07:51)
[2025-02-20 09:32] VITALS: RESP 16
--- NOTE | 2025-02-20 11:35 | P.PN ---
Progress Note - Text Progress Note Date: 02/20/25 Interval History: Patient was seen today in the hallways and attending group. He appears to be m ore active, more pleasant. States that he is trying to work on himself more on the unit. States that he has been showering hygiene and grooming improving. Claims that he is anxious to get back to work. When asked about the as needed medications he claims that he was just feeling "anxious" being on the unit and was speaking about discharge. Claims that he slept fairly last night, denies any withdrawal symptoms from alcohol. Denies any depression or anxiety at this time. Denies any Si or HI at this time and denies any side effects from the medictions. MENTAL STATUS EXAM: General Appearance: Patient appears to be thin, balding, stated age is alert, directable, and attempts to cooperate. Patient appears to have fair hygiene and grooming. Behavior: Patient is seated without any agitated behavior. improving mildly Speech: Patient's speech is fluent and nonpressured. Mood/Affect: Patient reports their mood is improving mildly, affect is congruent Suicidality/Homicidality: Patient denies having any homicidal ideation intent or plan. Denies any suicidal ideations intent or plan Perceptions: Patient denies any visual hallucinations and denies any auditory hallucinations Though content/process: There is no evidence of any delusional thought content and thought process is linear and goal-directed. Focused on discharge Memory and concentration: AOX3, grossly intact for the purposes of this session Judgment and insight:improving mildly IMPRESSIONS: Depressive disorder unspecified Alcohol use disorder Cannabis use disorder mild Nicotine dependence PLAN: -Patient is admitted under involuntary status to MHU for stabilization of psychiatric symptoms and safety. Patient has not signed adult voluntary form and has signed medication consent and is placed in patient's chart. A second certification was completed and along with petition will be filed for court. -Medications : Lexapro 10 mg daily for depression/anxiety, trazodone 50 mg nightly as needed for insomnia. -Ativan and Haldol PRN for agitation/aggression -thiamine, MVM for etoh use -CIWA protocol with Ativan PRN for ETOH withdrawal. Scheduled Librium for alcohol withdrawal, continuing to taper off tonight -Patient is not interested in inpatient rehab at this time and would like to outpatient. -NRT -nicotine patch -SW on board for discharge planning. Encourage patient to participate in groups to work on coping skills. hopeful for discharge Monday
[2025-02-20 22:38] VITALS: TEMP 97.4
--- NOTE | 2025-02-21 09:28 | P.DS ---
Providers Date of admission: 02/18/25 19:47 Expected date of discharge: 02/21/25 Attending physician: Buck Puentes MD Consults: 02/18/25 19:52 Consult Physician Routine Consulting Provider: David Cadena I Consult Reason/Comments: H&P and medical Do you want consulting provider notified?: Yes Primary care physician: David Cadena MD - Discharge Diagnosis(es) (1) Depressive disorder Current Visit: Yes Status: Acute Priority: High (2) Alcohol use disorder Current Visit: Yes Status: Acute Priority: High (3) Cannabis use disorder, mild, abuse Current Visit: Yes Status: Acute Priority: Medium (4) Nicotine dependence Current Visit: Yes Status: Acute Priority: Low Hospital Course: Admission HPI: Admission note was completed by handbook writer "Patient is a 54-year-old male, currently he has 2 kids he lives with his in a house, he works as a jones. Patient was admitted to the mental health unit and a initial psychiatric evaluation was completed by handbook writer on 02/17 and according to note "presented to the hospital on a petition brought in by police. Patient was evaluated by EPS and according to note "Patient brought in by PD with petition after stabbing self in arm with hunting knife and expressed suicidal ideations. Patient assessed in ER19 from [id number]. Patient observed to be laying on hospital bed, appopriate appearance. Patient verbalizes struggling with upcoming divorce. States that last night he stabbed himself with a hunting knife to the right arm "looking for attention". Patient denies suicidal and homicidal ideations at this time to handbook writer. Patient denies auditory and visual hallucinations to handbook writer. Patient denies paranoia, and no delusional statements noted on assessment. Patient petitioned by police, "subject stated he is having suicidal thoughts due to an upcoming divorce. He admitted to self inflicted stab wound using a knife to his right arm". Patient denies any mental health history, and no inpatient or outpatient treatment. Patient verbalizes alcohol use 2-3 times per week with approx 6 beers. Denies history of withdrawal. Patient states hx of rehab about 20 years ago. Patient verbalizes smoking cigarettes 1/2ppd since age 14. Patient verbalizes good appetite and good sleep." Patient was seen today agreeable to speak to handbook writer in the office. Patient claims that he cut himself in the arm with his knife. He states that he has been feeling depressed lately anxious, claims that he has been getting into fights with his . States that on Monday his told him that she was going to leave him and went to her friend's house. Claims that they have not been getting along. Claims that he stabbed himself with a knife to get attention from her and claims that he took pictures of it and send it to her. He states that then she called the police on him from the hospital. He was minimizing his depression and anxiety. Denies any other stressors besides relationship andino. Claims that he does not have any issues with sleep or anxiety at this time or appetite. He was fairly superficial about what had occurred and does not believe that he needs treatment and to be in the hospital. Patient denies any astudillo icidal or homicidal ideations intent or plan. At this time patient denies any auditory or visual hallucinations. Patient denies any flight of ideas racing thoughts and increased in goal directed behavior. Patient admits to using alcohol regularly about 7 or 8 beers a day, denying any current withdrawal symptoms. Claims that he smokes cigarettes and also marijuana occasionally." Patient was discharged yesterday to the ER for evaluation after a syncopal episode close head injury. Patient had a CAT scan done of his brain did not show any acute changes. Blood work was also negative not remarkable for any causes. Likely attributed to orthostatic hypotension. Patient was transferred back to the mental health unit last night. Agreeable to be seen today by handbook writer in the office. Claims that he is doing a bit better today continues to claim that he is taking his medications not reporting any side effects today. Trying to remain positive denies any anxiety or mood today. Claims that he slept fairly last night denies any issues with appetite. At this time is denying any suicidal or homicidal ideations intent or plan denies any auditory or visual hallucinations. He remains fairly focused on discharge, continues to minimize at times" Hospital course: Upon admission to the unit patient was admitted involuntarily on a petition and certificate and a second certificate was completed and faxed to the courts. Patient ended up signing a deferral with the corporate attorney and agreeing to treatment. Patient was initially depressed and anxious however with time and treatment patient got along well with other patients on the unit and followed unit protocol. Patient was compliant with the medications and denied any side effects throughout hospital course. Patient was started on Lexapro increased to 10 mg daily for mood/anxiety, trazodone 50 mg nightly as needed for insomnia, naltrexone 50 mg p.o daily for alcohol cravings. Patient was also started on Librium scheduled and was gradually tapered off for alcohol withdrawal. Patient was also on CIWA protocol with as needed Ativan. Patient spoke of his stressors and engaged in therapy both group/activity therapy. Patient was also seen by medical team for history and physical exam. Throughout the course of the hospitalization patient gradually improved with regards to mood, anxiety, sleep and returned back to their baseline level of functioning. On the day of discharge patient denied any suicidal or homicidal ideations intent or plan denied any auditory or visual hallucinations. Patient endorsed wanting to live for his future and his kids. The patient denied any access to guns or weapons. Patient denied any paranoia and did not endorse any delusions. Patient does have a significant history of substance abuse and was counseled on abstaining from all substances including alcohol and marijuana. Patient was offered however declined inpatient substance-abuse rehab. Patient elected to do outpatient substance use treatment program through their outpatient provider. Patient was also counseled on the medications and need for regular compliance and was encouraged to follow-up with their outpatient appointment for mental health and also for primary care. Prior to discharge a family meeting will be arranged by social worker school to answer any questions and ensure safety upon discharge incuding making sure that guns/weapons are either removed from the home or locked away. Mental status exam: General Appearance: Patient appears to be thin, short hair, stated age is alert, pleasant, and cooperative. Patient is in no acute distress and has improved hygiene and grooming Behavior: Patient is calmly seated without any agitated behavior. Speech: Patient's speech is fluent and nonpressured. Mood/Affect: Patient reports their mood is "good", affect is congruent and euthymic. Suicidality/Homicidality: Patient denies having any suicidal or homicidal ideation intent or plan. Perceptions: Patient denies any auditory or visual hallucinations. Though content/process: There is no evidence of any delusional thought content and thought process is linear and goal-directed. More future oriented Memory and concentration: AOX3, grossly intact for the purposes of this session. Can spell "WORLD" backwards correctly. Judgment and insight: improved with guarded prognosis Impression: Depressive disorder unspecified Alcohol use disorder Cannabis use disorder mild abuse Nicotine dependence Plan: -Continue with discharge today as patient has improved and stabilized psychiatrically and is not currently an imminent threat to themself and/or others. Patient will remain at chronically elevated risk for harm to self and/or others due to their impulsivity and substance abuse. -Continue medications: Lexapro 10 mg daily for mood/anxiety, trazodone 50 mg nightly as needed for insomnia, naltrexone 50 mg daily p.o. for alcohol cravings. -Patient was counseled on the need for medication compliance and appropriate follow-up at mental health and also primary care for medical issues. Patient verbalized understanding and agreed. -Social work to help coordinate patients discharge today. also to ensure safe home environment that guns/weapons are either removed from the home or locked away. Social work also to arrange for patients follow up appointments with [facility] for psychiatric care along with follow up with primary care provider. -Patient counseled on abstaining from recreational drugs and marijuana and alcohol. Was informed/educated on the adverse effects on their physical and mental health. Patient verbally agreed and understood. Patient was offered substance abuse treatment however declined at this time. He plans on doing AA meetings and outpatient substance use treatment -Patient was instructed to return to the hospital or seek immediate medical care if their psychiatric or medical symptoms do worsen or reoccur. Allergies Allergy/AdvReac Type Severity Reaction Status Date / Time No Known Allergies Allergy Verified 02/16/25 14:31 Laboratory Results WBC 8.36 10*3/uL (4.50-10.00) 02/18/25 18:19 RBC 4.59 10*6/uL (4.40-5.60) 02/18/25 18:19 Hgb 15.6 g/dL (13.0-17.0) 02/18/25 18:19 Hct 44.2 % (39.6-50.0) 02/18/25 18:19 MCV 96.3 fL (80.0-97.0) 02/18/25 18:19 MCH 34.0 pg (27.0-32.0) H 02/18/25 18:19 MCHC 35.3 g/dL (32.0-37.0) 02/18/25 18:19 Plt Count 363 10*3/uL (140-440) 02/18/25 18:19 MPV 9.8 fL (9.5-12.2) 02/18/25 18:19 Immature Gran % (Auto) 0.2 % 02/18/25 18:19 Neutrophils % 67.5 % 02/18/25 18:19 Lymphocytes % 23.1 % 02/18/25 18:19 Monocytes % 7.5 % 02/18/25 18:19 Eosinophils % 1.2 % 02/18/25 18:19 Basophils % 0.5 % 02/18/25 18:19 Immature Gran # 0.02 10*3/uL (0.00-0.04) 02/18/25 18:19 Neutrophils # 5.64 10*3/uL (1.80-7.70) 02/18/25 18:19 Lymphocytes # 1.93 10*3/uL (0.90-5.00) 02/18/25 18:19 Monocytes # 0.63 10*3/uL (0.20-1.00) 02/18/25 18:19 Eosinophils # 0.10 10*3/uL (0.04-0.35) 02/18/25 18:19 Basophils # 0.04 10*3/uL (0.00-0.10) 02/18/25 18:19 PT 10.8 sec (10.0-12.5) 02/18/25 18:19 INR 1.0 (<1.2) 02/18/25 18:19 APTT 26.5 sec (22.0-30.0) 02/18/25 18:19 D-Dimer 0.20 mg/L FEU (<0.60) 02/18/25 18:19 Sodium 138 mmol/L (137-145) 02/18/25 18:19 Potassium 4.2 mmol/L (3.5-5.1) 02/18/25 18:19 Chloride 102 mmol/L (98-107) 02/18/25 18:19 Carbon Dioxide 26 mmol/L (22-30) 02/18/25 18:19 Anion Gap 10 mmol/L 02/18/25 18:19 BUN 12 mg/dL (9-20) 02/18/25 18:19 Creatinine 0.84 mg/dL (0.66-1.25) 02/18/25 18:19 Est GFR (CKD-EPI)AfAm >90 (>60 ml/min/1.73 sqM) 02/18/25 18:19 Est GFR (CKD-EPI)NonAf >90 (>60 ml/min/1.73 sqM) 02/18/25 18:19 Glucose 98 mg/dL (74-99) 02/18/25 18:19 Plasma Lactic Acid Isaias 1.0 mmol/L (0.7-2.0) 02/18/25 18:19 Calcium 10.2 mg/dL (8.4-10.2) 02/18/25 18:19 Phosphorus 4.3 mg/dL (2.5-4.5) 02/18/25 18:19 Magnesium 2.2 mg/dL (1.6-2.3) 02/18/25 18:19 Total Bilirubin 0.8 mg/dL (0.2-1.3) 02/18/25 18:19 AST 26 U/L (17-59) 02/18/25 18:19 ALT 42 U/L (4-49) 02/18/25 18:19 Alkaline Phosphatase 101 U/L (38-126) 02/18/25 18:19 Troponin I <0.012 ng/mL (0.000-0.034) 02/18/25 18:19 NT-Pro-B Natriuret Pep <20 pg/mL 02/18/25 18:19 Total Protein 7.9 g/dL (6.3-8.2) 02/18/25 18:19 Albumin 5.2 g/dL (3.5-5.0) H 02/18/25 18:19 Vital Signs Temp 97.4 F L 02/20/25 21:00 Pulse 79 02/20/25 21:00 Resp 16 02/20/25 21:00 BP 133/78 02/20/25 21:00 Pulse Ox 98 02/20/25 21:00 FiO2 Patient Condition at Discharge: Stable Plan - Discharge Summary Discharge Rx Participant: No New Discharge Prescriptions: New traZODone HCL [Desyrel] 50 mg PO HS PRN 30 Days #30 tab PRN Reason: Insomnia Escitalopram [Lexapro] 10 mg PO DAILY 30 Days #30 tab Multivitamins, Thera [Multivitamin (formulary)] 1 each PO DAILY tab Naltrexone HCl [Revia] 50 mg PO DAILY 30 Days #30 tab Thiamine [Vitamin B-1] 100 mg PO DAILY tab Folic Acid 1 mg PO DAILY tab Nicotine 14Mg/24Hr Patch [Habitrol] 1 patch TRANSDERM DAILY #0 patch Ibuprofen [Motrin] 600 mg PO Q6HR PRN tab PRN Reason: Moderate Pain (Scale 4 To 6) Continue Losartan [Cozaar] 50 mg PO DAILY Discharge Medication List Losartan [Cozaar] 50 mg PO DAILY 02/17/25 [History] Escitalopram [Lexapro] 10 mg PO DAILY 30 Days #30 tab 02/21/25 [Rx] Folic Acid 1 mg PO DAILY tab 02/21/25 [Rx] Ibuprofen [Motrin] 600 mg PO Q6HR PRN tab 02/21/25 [Rx] Multivitamins, Thera [Multivitamin (formulary)] 1 each PO DAILY tab 02/21/25 [Rx] Naltrexone HCl [Revia] 50 mg PO DAILY 30 Days #30 tab 02/21/25 [Rx] Nicotine 14Mg/24Hr Patch [Habitrol] 1 patch TRANSDERM DAILY #0 patch 02/21/25 [Rx] Thiamine [Vitamin B-1] 100 mg PO DAILY tab 02/21/25 [Rx] traZODone HCL [Desyrel] 50 mg PO HS PRN 30 Days #30 tab 02/21/25 [Rx] Follow up Appointment(s)/Referral(s): David Cadena MD [Primary Care Provider] - 1-2 days Patient Instructions/Handouts: Head Injury (ED) Discharge Disposition: HOME SELF-CARE
[2025-02-21 10:36] VITALS: BP 115/73; PULSE 74
== END 2025-02-21 15:12 | disposition home or self-care (01) | DRG 881 ==
LOC: EC 14:10 → 3MHU 19:47
PROVIDERS: ADMIT Psychiatry & Neurology Psychiatry; ATTEND Psychiatry & Neurology Psychiatry
DX: F32.A Depression, unspecified (principal); S09.90XA Unspecified injury of head, initial encounter; I10 Essential (primary) hypertension; F10.10 Alcohol abuse, uncomplicated; F12.10 Cannabis abuse, uncomplicated; X78.9XXA Intentional self-harm by unspecified sharp object, initial encounter; I95.1 Orthostatic hypotension; F41.9 Anxiety disorder, unspecified; W19.XXXA Unspecified fall, initial encounter; F17.210 Nicotine dependence, cigarettes, uncomplicated; Z79.899 Other long term (current) drug therapy; Z87.442 Personal history of urinary calculi; Z63.5 Disruption of family by separation and divorce; Z28.310 Unvaccinated for COVID-19; Z28.21 Immunization not carried out because of patient refusal; M19.90 Unspecified osteoarthritis, unspecified site
CPT/HCPCS: 36415; 70450; 72125; 80053; 83605; 83735; 83880; 84100; 84484; 85025; 85379; 85610; 85730; 96361; 96374; 99285